=== PATIENT | female | born 1950 | race Caucasian/White ===

== ENCOUNTER 2021-06-07 19:42 | Inpatient (IN) ==
[2021-06-07] MEDS ORDERED: MoRPHine SULFATE 4 MG/ML 1 ML CARP\\VIAL IV STA ×2 (20:10→21:45)
[2021-06-07] MEDS ORDERED: ONDANSETRON INJ 2 MG/ML 2 ML VIAL IV STA (20:10)
[2021-06-07] MEDS ORDERED: SODIUM CHLORIDE 0.9% 1000ML 1,000 ML IV ONE (20:13)
--- NOTE | 2021-06-07 20:13 | Emergency Department Note ---
Impression & Plan Fracture of head of humerus, Dislocation, shoulder, anterior, Closed hip fracture Admission ED Provider Note HPI: The patient is a 71-year-old female with stated history of osteoporosis, patient presented to the emergency department with a chief complaint of right shoulder pain after mechanical fall today. Patient states that she was walking when she tripped over a suitcase that was on the ground. She states she fell directly on her right shoulder and right upper arm area. She states that she had acute pain after the fall. Patient denies any pain in her hips on arrival. She is anxious appearing and in mild distress secondary to pain on arrival, she does have full range of motion of her right hand and a palpable radial pulse. She is otherwise alert, denies any head injury, denies any chest pain or shortness of breath. ROS: - MSK: Right upper extremity pain/right shoulder pain *10 point review systems was conducted and is otherwise negative unless stated above *Outpatient medications and allergy history reviewed PE: General: Alert, NAD HEENT: Normocephalic, atraumatic, trachea midline Eyes: Extraocular eye movement is intact, no scleral erythema Pulmonary: Clear to auscultation bilaterally, no wheezing Cardio: Regular rate and rhythm GI: Abdomen is soft, nontender : No suprapubic tenderness MSK: Limited range of motion of the right shoulder secondary to pain, there is an obvious deformity/consistent with anterior dislocation of the right shoulder on my exam, patient does have motor and sensory function intact distally in the right hand, range of motion is limited at the right hip and there is some pain with palpation at the right hip Skin: No evidence of rash Neuro: Alert, no focal deficits Psychiatric: Cooperative ED sedation note: Consent was obtained, documented, patient signed consent for procedure and deep sedation. Patient was placed on library monitor, supplemental oxygen with OxiMax, oxygen saturations noted to be 100% prior to the procedure. Patient was placed on end- tidal capnography. Following a time out confirming the patient's name, age, and procedure to be performed, 70mg Of propofol was administered via bolus with subsequent flush at 2250. Adequate anesthesia was achieved. Procedure was performed (Please see separately documented note by Dr. Rodriguez who performed the dislocation/reduction of the right shoulder). Patient became more alert and verbally responsive at 2254. She is conversational and otherwise appears well following the procedure at this time. Medical Decision Making: Patient presented with pain in her right shoulder, x-ray imaging confirms a humeral head fracture with anterior dislocation of the shoulder. Patient did attempt to ambulate while in the ED and later did state that she had some pain in her right hip, I did therefore order x-ray imaging of right hip that does show evidence of a comminuted fracture of the proximal right femur. IV was established, patient was given IV morphine for pain, I did discuss case with on-call orthopedics, Dr. Boland, recommended reduction of the dislocated shoulder that does appear to have a humeral head fracture, he is in agreement to evaluate the patient tomorrow for possible operative intervention but is requesting that an MRI of the right hip be ordered for further assessment of the area of concern in the right hip for fracture to be done tomorrow morning. I did have a thorough discussion with the patient and her at the bedside about the above findings, patient is in agreement for admission, she is in agreement for reduction to be performed here in the ED. Reduction of the right dislocated shoulder was performed here in the ED following sedation with propofol, please see separately documented notes regarding sedation in addition to separately documented procedure note by Dr. Rodriguez who did assist me with this procedure as I administered the anesthesia. Patient did tolerate the procedure well, follow-up x-ray imaging confirms appropriate placement / anatomic alignment of the previously dislocated right shoulder. On my reassessment following the procedure the patient is talkative and saturating well. Case was discussed with the admitting hospitalist service and the patient will be admitted to the hospitalist service with orthopedic consultation for definitive care. Patient was admitted in stable condition. Diagnosis: 1. Right-sided humeral head fracture 2. Right-sided Anterior shoulder dislocation 3. Comminuted fracture of the proximal right femur/Hip 4. Osteoporosis Disposition: Admission Royal Brothers DO Emergency Medicine Past Med/Surg History Social History Smoking Status: Never smoker Hx Substance Use: No Preferred Language: Slovak Feels Safe at Home: Yes Allergies Allergies Allergy/AdvReac Type Severity Reaction Status Date / Time Penicillins Allergy Intermediate Rash Verified 06/07/21 20:32 Home Meds Home Medications Medication Instructions Recorded Confirmed evolocumab 140 mg/mL subcutaneous 140 mg SUBCUT .Q2WK 06/07/21 06/07/21 pen injector (Cassi Rodriguez) nifedipine 30 mg tablet,extended 30 mg PO DAILY 06/07/21 06/07/21 release raloxifene 60 mg tablet 60 mg PO DAILY 06/07/21 06/07/21 telmisartan 80 mg tablet 80 mg PO DAILY 06/07/21 06/07/21 Results & Data (ED) Vital Signs Vital Signs - 24 hr 06/07/21 19:53 06/07/21 19:54 06/07/21 20:41 Temperature 36.8 C 36.8 C Temperature Source Oral Oral Pulse Rate 74 73 Pulse Rate [Left Finger] 73 Pulse Rate from SpO2 Sensor 73 Pulse Rhythm Regular Pulse Rhythm [Left Finger] Pulse Strength [Left Finger] Respiratory Rate 18 19 20 Respiratory Effort / Characteristics Non-Labored Respiratory Depth Normal Respiratory Pattern Regular Blood Pressure 140/79 Blood Pressure [Left Arm] 140/79 Blood Pressure Mean 99 Blood Pressure Mean [Left Arm] 99 Blood Pressure Position Semi-fowlers Blood Pressure Position [Left Arm] Pulse Oximetry 98 96 94 Oxygen Delivery Method Room Air Room Air Room Air Sepsis Recent Fever Within 48 Hours No Sepsis New/Unexplained Change in Mental Status No Sepsis Action Taken by Nursing No Action Required End-Tidal CO2 Oxygen Flow Rate - Titration Pulse Oximetry Post Tiitration 06/07/21 20:50 06/07/21 21:00 06/07/21 21:10 Temperature Temperature Source Pulse Rate 107 H 123 H Pulse Rate [Left Finger] Pulse Rate from SpO2 Sensor 102 H 123 H 103 H Pulse Rhythm Pulse Rhythm [Left Finger] Pulse Strength [Left Finger] Respiratory Rate 22 20 20 Respiratory Effort / Characteristics Respiratory Depth Respiratory Pattern Blood Pressure Blood Pressure [Left Arm] Blood Pressure Mean Blood Pressure Mean [Left Arm] Blood Pressure Position Blood Pressure Position [Left Arm] Pulse Oximetry 93 95 94 Oxygen Delivery Method Room Air Room Air Room Air Sepsis Recent Fever Within 48 Hours Sepsis New/Unexplained Change in Mental Status Sepsis Action Taken by Nursing End-Tidal CO2 Oxygen Flow Rate - Titration Pulse Oximetry Post Tiitration 06/07/21 21:20 06/07/21 21:41 06/07/21 21:50 Temperature Temperature Source Pulse Rate 84 Pulse Rate [Left Finger] Pulse Rate from SpO2 Sensor 93 H 84 Pulse Rhythm Pulse Rhythm [Left Finger] Pulse Strength [Left Finger] Respiratory Rate 20 20 13 Respiratory Effort / Characteristics Respiratory Depth Respiratory Pattern Blood Pressure Blood Pressure [Left Arm] Blood Pressure Mean Blood Pressure Mean [Left Arm] Blood Pressure Position Blood Pressure Position [Left Arm] Pulse Oximetry 95 95 94 Oxygen Delivery Method Room Air Room Air Sepsis Recent Fever Within 48 Hours Sepsis New/Unexplained Change in Mental Status Sepsis Action Taken by Nursing End-Tidal CO2 Oxygen Flow Rate - Titration Pulse Oximetry Post Tiitration 06/07/21 22:00 06/07/21 22:10 06/07/21 22:36 Temperature Temperature Source Pulse Rate 89 116 H Pulse Rate [Left Finger] 109 H Pulse Rate from SpO2 Sensor 89 114 H Pulse Rhythm Pulse Rhythm [Left Finger] Regular Pulse Strength [Left Finger] Normal Respiratory Rate 23 21 18 Respiratory Effort / Characteristics Non-Labored Respiratory Depth Normal Respiratory Pattern Regular Blood Pressure Blood Pressure [Left Arm] 160/84 H Blood Pressure Mean Blood Pressure Mean [Left Arm] 109 Blood Pressure Position Blood Pressure Position [Left Arm] Lying Pulse Oximetry 94 95 95 Oxygen Delivery Method Room Air Sepsis Recent Fever Within 48 Hours Sepsis New/Unexplained Change in Mental Status Sepsis Action Taken by Nursing End-Tidal CO2 Oxygen Flow Rate - Titration Pulse Oximetry Post Tiitration 06/07/21 22:45 06/07/21 22:50 06/07/21 22:55 Temperature Temperature Source Pulse Rate 114 H 122 H 100 H Pulse Rate [Left Finger] Pulse Rate from SpO2 Sensor Pulse Rhythm Pulse Rhythm [Left Finger] Pulse Strength [Left Finger] Respiratory Rate 22 19 30 H Respiratory Effort / Characteristics Respiratory Depth Respiratory Pattern Blood Pressure 161/95 H 135/76 146/82 H Blood Pressure [Left Arm] Blood Pressure Mean 117 95 103 Blood Pressure Mean [Left Arm] Blood Pressure Position Blood Pressure Position [Left Arm] Pulse Oximetry 93 99 97 Oxygen Delivery Method Sepsis Recent Fever Within 48 Hours Sepsis New/Unexplained Change in Mental Status Sepsis Action Taken by Nursing End-Tidal CO2 33 34 23 Oxygen Flow Rate - Titration Pulse Oximetry Post Tiitration 06/07/21 23:00 06/07/21 23:05 06/07/21 23:10 Temperature Temperature Source Pulse Rate 90 107 H 97 H Pulse Rate [Left Finger] Pulse Rate from SpO2 Sensor Pulse Rhythm Pulse Rhythm [Left Finger] Pulse Strength [Left Finger] Respiratory Rate 18 18 23 Respiratory Effort / Characteristics Respiratory Depth Respiratory Pattern Blood Pressure 150/91 H 149/94 H 156/90 H Blood Pressure [Left Arm] Blood Pressure Mean 110 112 112 Blood Pressure Mean [Left Arm] Blood Pressure Position Blood Pressure Position [Left Arm] Pulse Oximetry 98 96 97 Oxygen Delivery Method Sepsis Recent Fever Within 48 Hours Sepsis New/Unexplained Change in Mental Status Sepsis Action Taken by Nursing End-Tidal CO2 39 35 32 Oxygen Flow Rate - Titration Pulse Oximetry Post Tiitration 06/07/21 23:15 06/07/21 23:20 06/07/21 23:25 Temperature Temperature Source Pulse Rate 105 H 106 H 96 H Pulse Rate [Left Finger] Pulse Rate from SpO2 Sensor Pulse Rhythm Pulse Rhythm [Left Finger] Pulse Strength [Left Finger] Respiratory Rate 20 23 16 Respiratory Effort / Characteristics Respiratory Depth Respiratory Pattern Blood Pressure 158/94 H 158/88 H 160/90 H Blood Pressure [Left Arm] Blood Pressure Mean 115 111 113 Blood Pressure Mean [Left Arm] Blood Pressure Position Blood Pressure Position [Left Arm] Pulse Oximetry 92 93 92 Oxygen Delivery Method Sepsis Recent Fever Within 48 Hours Sepsis New/Unexplained Change in Mental Status Sepsis Action Taken by Nursing End-Tidal CO2 36 34 34 Oxygen Flow Rate - Titration Pulse Oximetry Post Tiitration 06/07/21 23:30 06/07/21 23:45 06/08/21 00:00 Temperature Temperature Source Pulse Rate 98 H 106 H Pulse Rate [Left Finger] 83 Pulse Rate from SpO2 Sensor Pulse Rhythm Pulse Rhythm [Left Finger] Regular Pulse Strength [Left Finger] Normal Respiratory Rate 21 27 H 22 Respiratory Effort / Characteristics Non-Labored Respiratory Depth Normal Respiratory Pattern Regular Blood Pressure 161/102 H 160/86 H Blood Pressure [Left Arm] 161/79 H Blood Pressure Mean 121 110 Blood Pressure Mean [Left Arm] 106 Blood Pressure Position Blood Pressure Position [Left Arm] Lying Pulse Oximetry 94 93 94 Oxygen Delivery Method Room Air Sepsis Recent Fever Within 48 Hours Sepsis New/Unexplained Change in Mental Status Sepsis Action Taken by Nursing End-Tidal CO2 35 33 Oxygen Flow Rate - Titration Pulse Oximetry Post Tiitration 06/08/21 01:46 Temperature Temperature Source Pulse Rate Pulse Rate [Left Finger] Pulse Rate from SpO2 Sensor Pulse Rhythm Pulse Rhythm [Left Finger] Pulse Strength [Left Finger] Respiratory Rate Respiratory Effort / Characteristics Respiratory Depth Respiratory Pattern Blood Pressure Blood Pressure [Left Arm] Blood Pressure Mean Blood Pressure Mean [Left Arm] Blood Pressure Position Blood Pressure Position [Left Arm] Pulse Oximetry 83 L Oxygen Delivery Method Room Air Sepsis Recent Fever Within 48 Hours Sepsis New/Unexplained Change in Mental Status Sepsis Action Taken by Nursing End-Tidal CO2 Oxygen Flow Rate - Titration 2 Pulse Oximetry Post Tiitration 97 Laboratory Data Result diagrams: 06/07/21 22:00 06/07/21 22:00 Lab Results 06/07/21 06/07/21 06/07/21 Range/Units 22:00 22:00 22:00 WBC 18.86 H (4.8-10.8) K/uL RBC 4.42 (4.2-5.4) M/uL Hgb 14.0 (12.0-16.0) g/dL Hct 40.8 (37-47) % MCV 92.3 (80-100) fL MCH 31.7 (25-34) pg MCHC 34.3 (32-36) g/dL RDW Std Deviation 45.4 (36.4-46.3) fL RDW Coeff of Swetha 13.5 (11.5-14.5) % Plt Count 295 (130-400) K/uL MPV 9.9 (7.4-10.4) fL Immature Gran % (Auto) 0.4 % Neut % (Auto) 88.3 % Lymph % (Auto) 5.2 % Louisa % (Auto) 5.8 % Eos % (Auto) 0.1 % Baso % (Auto) 0.2 % Neut # (Auto) 16.68 H (1.4-6.5) K/uL Lymph # (Auto) 0.98 L (1.2-3.4) K/uL Louisa # (Auto) 1.09 H (0.11-0.59) K/uL Eos # (Auto) 0.01 (0-0.5) K/uL Baso # (Auto) 0.03 (0-0.2) K/uL Immature Gran # (Auto) 0.07 H (0.00-0.02) K/uL PT 9.9 (9.0-12.0) Seconds INR 1.0 (0.9-1.1) Sodium 142 (136-145) mmol/L Potassium 3.3 L (3.5-5.1) mmol/L Chloride 110 H (98-107) mmol/L Carbon Dioxide 25 (21-32) mmol/L Anion Gap 7.0 (3-11) BUN 18 (7-18) mg/dl Creatinine 0.78 (0.6-1.2) mg/dl Est Cr Clr Drug Dosing 59.1 ml/min Est GFR ( Amer) 88.0 ml/min Est GFR (Non-Af Amer) 76.0 ml/min BUN/Creatinine Ratio 23.6 H (10-20) Glucose 169 H (70-99) mg/dl Calcium 8.2 L (8.5-10.1) mg/dl Total Bilirubin 0.2 (0.2-1) mg/dl AST 23 (15-37) U/L ALT 33 (12-78) Alkaline Phosphatase 70 (45-117) U/L Total Protein 7.3 (6.4-8.2) gm/dl Albumin 3.7 (3.4-5.0) gm/dl Globulin 3.6 (2.5-4.0) gm/dl Albumin/Globulin Ratio 1.0 (0.9-2) Specimen Hemolysis SARS-CoV-2, RNA, NAAT (NEGATIVE) 06/08/21 Range/Units 01:05 WBC (4.8-10.8) K/uL RBC (4.2-5.4) M/uL Hgb (12.0-16.0) g/dL Hct (37-47) % MCV (80-100) fL MCH (25-34) pg MCHC (32-36) g/dL RDW Std Deviation (36.4-46.3) fL RDW Coeff of Swetha (11.5-14.5) % Plt Count (130-400) K/uL MPV (7.4-10.4) fL Immature Gran % (Auto) % Neut % (Auto) % Lymph % (Auto) % Louisa % (Auto) % Eos % (Auto) % Baso % (Auto) % Neut # (Auto) (1.4-6.5) K/uL Lymph # (Auto) (1.2-3.4) K/uL Louisa # (Auto) (0.11-0.59) K/uL Eos # (Auto) (0-0.5) K/uL Baso # (Auto) (0-0.2) K/uL Immature Gran # (Auto) (0.00-0.02) K/uL PT (9.0-12.0) Seconds INR (0.9-1.1) Sodium (136-145) mmol/L Potassium (3.5-5.1) mmol/L Chloride (98-107) mmol/L Carbon Dioxide (21-32) mmol/L Anion Gap (3-11) BUN (7-18) mg/dl Creatinine (0.6-1.2) mg/dl Est Cr Clr Drug Dosing ml/min Est GFR ( Amer) ml/min Est GFR (Non-Af Amer) ml/min BUN/Creatinine Ratio (10-20) Glucose (70-99) mg/dl Calcium (8.5-10.1) mg/dl Total Bilirubin (0.2-1) mg/dl AST (15-37) U/L ALT (12-78) Alkaline Phosphatase (45-117) U/L Total Protein (6.4-8.2) gm/dl Albumin (3.4-5.0) gm/dl Globulin (2.5-4.0) gm/dl Albumin/Globulin Ratio (0.9-2) Specimen Hemolysis SARS-CoV-2, RNA, NAAT NEGATIVE (NEGATIVE) Administered Medications Lactated Ringer's (Lr) 1,000 mls @ 60 mls/hr IV .[id number] Stop: 07/08/21 01:44 Last Admin: 06/08/21 01:52 Dose: 60 mls/hr Documented by: [id number] Discontinued Medications Sodium Chloride (Nss 1000ml) 1,000 mls @ 999 mls/hr IV .[id number] ONE Stop: 06/07/21 21:13 Last Infusion: 06/07/21 21:55 Dose: 0 mls/hr Documented by: [id number] Admin: 06/07/21 20:41 Dose: 999 mls/hr Documented by: [id number] Lidocaine HCl (Lidocaine 1% Local 20 Ml Vial) 10 ml INJ NOW ONE Stop: 06/07/21 21:37 Last Admin: 06/07/21 21:56 Dose: 10 ml Documented by: [id number] Morphine Sulfate (Morphine Sulfate 4 Mg/Ml 1 Ml Carp\Vial) 4 mg IV NOW STA Stop: 06/07/21 20:11 Last Admin: 06/07/21 20:42 Dose: 4 mg Documented by: [id number] Morphine Sulfate (Morphine Sulfate 4 Mg/Ml 1 Ml Carp\Vial) 4 mg IV NOW STA Stop: 06/07/21 21:46 Last Admin: 06/07/21 22:10 Dose: 4 mg Documented by: [id number] Ondansetron HCl (Ondansetron Inj 2 Mg/Ml 2 Ml Vial) 4 mg IV NOW STA Stop: 06/07/21 20:11 Last Admin: 06/07/21 20:41 Dose: 4 mg Documented by: [id number] Propofol (Propofol Iv Emulsion 10 Mg/Ml 20 Ml Vial) 100 mg IV NOW STA Stop: 06/07/21 22:14 Last Admin: 06/07/21 22:50 Dose: 70 mg Documented by: [id number] Cosigned by: [id number] Imaging Data Radiologist's Impression: Humerus X-Ray 06/07/21 20:10 XR humerus RT 2V CLINICAL HISTORY: fall. . Right shoulder pain COMPARISON STUDY: Shoulder radiographs from the same date TECHNIQUE: AP and lateral right humerus views FINDINGS: Bones: As seen on shoulder radiographs, there is an anterior shoulder dislocation along with vertically oriented fracture through the humeral head. The remainder of the humeral shaft is intact. There is no lytic or blastic lesion. Joints: The elbow joint space is maintained. Soft tissues: There is no focal soft tissue abnormality. There is no radiopaque foreign body. IMPRESSION: Anterior shoulder dislocation and vertically oriented fracture through the humeral head are again seen. The remainder of the humeral shaft is intact. ACT 112: Negative or not required by law. Electronically signed by: Frank Manzanares M.D. 06/07/2021 9:37 PM Shoulder X-Ray 06/07/21 20:10 XR shoulder RT min 2V routine CLINICAL HISTORY: Fall, R shoulder pain. COMPARISON STUDY: No previous studies for comparison. TECHNIQUE: 3 right shoulder views FINDINGS: Bones: There is an anterior, subcoracoid dislocation of the humeral head in relation to the glenoid. Additionally, there is a vertically oriented, displaced fracture involving the humeral head. There is no lytic or blastic lesion. Joints: Mild degenerative changes are seen at the acromial clavicular joint. Soft tissues: There is no focal soft tissue abnormality. There is no radiopaque foreign body. IMPRESSION: 1. Anterior, subcoracoid dislocation of the humeral head in relation to the glenoid. 2. Vertically oriented, displaced fracture through the humeral head. ACT 112: Negative or not required by law. Electronically signed by: Frank Manzanares M.D. 06/07/2021 9:35 PM Elbow X-Ray 06/07/21 20:12 XR elbow RT 2V CLINICAL HISTORY: fall. . Right elbow pain COMPARISON STUDY: No previous studies for comparison. TECHNIQUE: 4 right elbow views FINDINGS: Limited study was performed due to the shoulder dislocation present. Bones: There is no evidence for an acute fracture or dislocation. There is no lytic or blastic lesion. Joints: The joint spaces are maintained. The bones are in anatomic alignment. Soft tissues: There is no focal soft tissue abnormality. There is no radiopaque foreign body. IMPRESSION: No acute osseous pathology. ACT 112: Negative or not required by law. Electronically signed by: Frank Manzanares M.D. 06/07/2021 9:38 PM Hip X-Ray 06/07/21 20:39 XR hip RT min 2V CLINICAL HISTORY: Status post fall with right hip pain. COMPARISON STUDY: No previous studies for comparison. TECHNIQUE: 2 right hip views FINDINGS: Bones: There is evidence for a laterally impacted, subcapital fracture of the right femoral neck. The medial cortex is intact. There is no lytic or blastic lesion. Joints: The joint spaces are maintained. The bones are in anatomic alignment. Soft tissues: There is a large calcified uterine fibroid. There is no radiopaque foreign body. IMPRESSION: Evidence for a laterally impacted, subcapital fracture of the right femoral neck. ACT 112: Negative or not required by law. Electronically signed by: Frank Manzanares M.D. 06/07/2021 9:33 PM Shoulder X-Ray 06/07/21 22:59 XR shoulder RT min 2V routine CLINICAL HISTORY: s/p reduction. COMPARISON STUDY: 06/07/2021 TECHNIQUE: 2 right shoulder views FINDINGS: Bones and joints: Compared to previous examination, there has been interval reduction of previously identified interstitial or dislocation. Humeral head is now in anatomic position within the glenoid. Previously identified vertically oriented fracture through the tuberosities of the humeral head are now in near anatomic alignment. No additional fractures are identified. There is no lytic or blastic lesion. Soft tissues: There is no focal soft tissue abnormality. There is no radiopaque foreign body. IMPRESSION: Status post reduction of previously identified interstitial dislocation. Vertically oriented fracture through the bases of the tuberosities of the humeral head is now in near-anatomic alignment. ACT 112: Negative or not required by law. Electronically signed by: Frank Manzanares M.D. 06/07/2021 11:16 PM Discharge Plan Visit Data Chief Complaint: Shoulder Dislocation Stated Complaint: FALL/SHOULDER DISLOCATION ED Provider: Royal Brothers Discharge Problem: Fracture of head of humerus, Dislocation, shoulder, anterior, Closed hip fracture Patient Disposition: Admitted As Inpatient Forms Stand Alone Forms: [facility] Prescriptions Prescriptions: No Action Repatha SureClick 140 mg/mL Pen Injector 140 mg SUBCUT .Q2WK RF: 0 nifedipine 30 mg tablet extended release 30 mg PO DAILY RF: 0 telmisartan 80 mg tablet 80 mg PO DAILY RF: 0 raloxifene 60 mg tablet 60 mg PO DAILY RF: 0 Referrals Referrals: PCP,NO [Primary Care Provider] - Sedation Data Sedation Times Sedation Start Date: 06/07/21 Sedation Start Time: 22:50 Sedation End Date: 06/07/21 Sedation End Time: 22:54 Total Sedation Time: 4 Procedure Times Procedure Start Time:: 22:51 Procedure End Time: 22:52
--- NOTE | 2021-06-07 21:34 | XRay Report ---
XR hip RT min 2V CLINICAL HISTORY: Status post fall with right hip pain. COMPARISON STUDY: No previous studies for comparison. TECHNIQUE: 2 right hip views FINDINGS: Bones: There is evidence for a laterally impacted, subcapital fracture of the right femoral neck. The medial cortex is intact. There is no lytic or blastic lesion. Joints: The joint spaces are maintained. The bones are in anatomic alignment. Soft tissues: There is a large calcified uterine fibroid. There is no radiopaque foreign body. IMPRESSION: Evidence for a laterally impacted, subcapital fracture of the right femoral neck. ACT 112: Negative or not required by law. Electronically signed by: Frank Manzanares M.D. 06/07/2021 9:33 PM
[2021-06-07] MEDS ORDERED: LIDOCAINE 1% LOCAL 20 ML VIAL INJ ONE (21:36)
--- NOTE | 2021-06-07 21:36 | XRay Report ---
XR shoulder RT min 2V routine CLINICAL HISTORY: Fall, R shoulder pain. COMPARISON STUDY: No previous studies for comparison. TECHNIQUE: 3 right shoulder views FINDINGS: Bones: There is an anterior, subcoracoid dislocation of the humeral head in relation to the glenoid. Additionally, there is a vertically oriented, displaced fracture involving the humeral head. There is no lytic or blastic lesion. Joints: Mild degenerative changes are seen at the acromial clavicular joint. Soft tissues: There is no focal soft tissue abnormality. There is no radiopaque foreign body. IMPRESSION: 1. Anterior, subcoracoid dislocation of the humeral head in relation to the glenoid. 2. Vertically oriented, displaced fracture through the humeral head. ACT 112: Negative or not required by law. Electronically signed by: Frank Manzanares M.D. 06/07/2021 9:35 PM
--- NOTE | 2021-06-07 21:38 | XRay Report ---
XR humerus RT 2V CLINICAL HISTORY: fall. . Right shoulder pain COMPARISON STUDY: Shoulder radiographs from the same date TECHNIQUE: AP and lateral right humerus views FINDINGS: Bones: As seen on shoulder radiographs, there is an anterior shoulder dislocation along with vertical ly oriented fracture through the humeral head. The remainder of the humeral shaft is intact. There is no lytic or blastic lesion. Joints: The elbow joint space is maintained. Soft tissues: There is no focal soft tissue abnormality. There is no radiopaque foreign body. IMPRESSION: Anterior shoulder dislocation and vertically oriented fracture through the humeral head a re again seen. The remainder of the humeral shaft is intact. ACT 112: Negative or not required by law. Electronically signed by: Frank Manzanares M.D. 06/07/2021 9:37 PM
--- NOTE | 2021-06-07 21:39 | XRay Report ---
XR elbow RT 2V CLINICAL HISTORY: fall. . Right elbow pain COMPARISON STUDY: No previous studies for comparison. TECHNIQUE: 4 right elbow views FINDINGS: Limited study was performed due to the shoulder dislocation present. Bones: There is no evidence for an acute fracture or dislocation. There is no lytic or blastic lesion . Joints: The joint spaces are maintained. The bones are in anatomic alignment. Soft tissues: There is no focal soft tissue abnormality. There is no radiopaque foreign body. IMPRESSION: No acute osseous pathology. ACT 112: Negative or not required by law. Electronically signed by: Frank Manzanares M.D. 06/07/2021 9:38 PM
[2021-06-07 22:07] LABS: Hematocrit (blood only) 40.8 % (37-47); Mean Corpuscular Hemoglobin 31.7 pg (25-34); Mean Corpuscular Hgb Conc 34.3 g/dL (32-36); Mean Corpuscular Volume 92.3 fL (80-100); Mean Platelet Volume 9.9 fL (7.4-10.4); Platelet Count 295 K/uL (130-400); RDW Coefficient of Variation 13.5 % (11.5-14.5); RDW Standard Deviation 45.4 fL (36.4-46.3); Red Blood Count 4.42 M/uL (4.2-5.4); White Blood Count 18.86 K/uL (4.8-10.8)
[2021-06-07] MEDS ORDERED: PROPOFOL IV EMULSION 10 MG/ML 20 ML VIAL IV STA (22:13)
--- NOTE | 2021-06-07 22:15 | Post Anesthesia Assessment ---
Date of Service June 07, 2021 Post Sedation Assessment Vital Signs Temp Pulse Pulse Resp BP BP Pulse Ox 06/08/21 01:46 83 L 06/08/21 00:00 83 22 161/79 H 94 06/07/21 23:45 106 H 27 H 160/86 H 93 06/07/21 23:30 98 H 21 161/102 H 94 06/07/21 23:25 96 H 16 160/90 H 92 06/07/21 23:20 106 H 23 158/88 H 93 06/07/21 23:15 105 H 20 158/94 H 92 06/07/21 23:10 97 H 23 156/90 H 97 06/07/21 23:05 107 H 18 149/94 H 96 06/07/21 23:00 90 18 150/91 H 98 06/07/21 22:55 100 H 30 H 146/82 H 97 06/07/21 22:50 122 H 19 135/76 99 06/07/21 22:45 114 H 22 161/95 H 93 06/07/21 22:36 109 H 18 160/84 H 95 06/07/21 22:10 116 H 21 95 06/07/21 22:00 89 23 94 06/07/21 21:50 84 13 94 06/07/21 21:41 20 95 06/07/21 21:20 20 95 06/07/21 21:10 20 94 06/07/21 21:00 123 H 20 95 06/07/21 20:50 107 H 22 93 06/07/21 20:41 73 20 94 06/07/21 19:54 36.8 C 74 19 140/79 96 06/07/21 19:53 36.8 C 73 18 140/79 98 Recovery Score Activity: Moves 4 extremities Respiration: Deep Breath/Cough Consciousness: Fully Awake Oxygen Saturation: > 92% On Room Air Discharge Sedation Level of Care: Phase I Post Sedation Plan On clinical assessment, the patient appears to have tolerated the sedation without complications. Patient is recovering as anticipated. Patient will continue to be monitored by nursing and may be discharged when sedation discharge criteria are met per below protocol. Upon Completions of procedure up to 15 minutes continue every 5 minute vital signs and the P.A.R. score; then discharge to a Phase I or Fast Track to Phase II per the following guidelines: * Discharge Patient to appropriate Phase II area if PAR is 8 or greater or return to pre- procedure baseline. The post - procedure orders will be as directed. * If PAR score is less than 8 or not return to pre-procedure baseline then patient will follow Phase I monitoring till PAR is reached for Phase II. The Phase I may be done in procedure room or may call to secure a Phase I area. * If naloxone or flumazenil are used for reversal, hold in Phase I for continued monitoring from when last reversal dose was given for a minimum of 60 minutes or longer pending the nurse and/or physician discretion of patient condition before discharge to Phase II. Please call the Sedation Physician to re-evaluate and complete post-note for discharge to Phase II area. Do NOT discharge from procedure sedation or Phase 1 until post- sedation evaluation note is complete by procedure /sedation MD Sedation Discharge Instructions to be given to the patient at discharge to home. Addendum June 08, 2021 02:14 Patient appears well after her procedure, she is awake, she does not exhibit any labored breathing, she is talkative, appears well-perfused, she tolerated the procedure well.
--- NOTE | 2021-06-07 22:16 | Pre Anesthesia Assessment ---
Date of Service June 07, 2021 Pre Sedation Assessment Vital Signs Temp Pulse Pulse Resp BP BP Pulse Ox 06/08/21 01:46 83 L 06/08/21 00:00 83 22 161/79 H 94 06/07/21 23:45 106 H 27 H 160/86 H 93 06/07/21 23:30 98 H 21 161/102 H 94 06/07/21 23:25 96 H 16 160/90 H 92 06/07/21 23:20 106 H 23 158/88 H 93 06/07/21 23:15 105 H 20 158/94 H 92 06/07/21 23:10 97 H 23 156/90 H 97 06/07/21 23:05 107 H 18 149/94 H 96 06/07/21 23:00 90 18 150/91 H 98 06/07/21 22:55 100 H 30 H 146/82 H 97 06/07/21 22:50 122 H 19 135/76 99 06/07/21 22:45 114 H 22 161/95 H 93 06/07/21 22:36 109 H 18 160/84 H 95 06/07/21 22:10 116 H 21 95 06/07/21 22:00 89 23 94 06/07/21 21:50 84 13 94 06/07/21 21:41 20 95 06/07/21 21:20 20 95 06/07/21 21:10 20 94 06/07/21 21:00 123 H 20 95 06/07/21 20:50 107 H 22 93 06/07/21 20:41 73 20 94 06/07/21 19:54 36.8 C 74 19 140/79 96 06/07/21 19:53 36.8 C 73 18 140/79 98 Cardiovascular RRR, no murmur, no edema + regular rate and + regular rhythm + S1 normal and + S2 normal + capillary refill normal Pre-Sedation Airway Assessment Smoking Status: Never smoker Hx Sleep Apnea: No Hx Difficult Intubation: No Short, Thick Neck: No Thyromental Distance: > or= 3.5 Finger Breadths Oral Cavity: + WNL Mallampati Class: II CLASS 2 Class 2 NPO Status Date of Last Intake of Solid Food: 06/07/21 Time of Last Intake of Solid Foods: 14:00 Procedure Planning Contraindications for Sedation: none Current Medications Reviewed: Yes Notes The planned sedation has been discussed with the patient. Informed Consent was obtained. I have identified the patient, determined the appropriateness of sedation and have assessed the patient immediately prior to the procedure. All medicine(s) and interventions are by my order.
[2021-06-07 22:19] LABS: Prothrombin Time 9.9 Seconds (9.0-12.0)
[2021-06-07 22:26] LABS: Albumin Level 3.7 gm/dl (3.4-5.0); BUN Creatinine Ratio 23.6 (10-20); Calcium 8.2 mg/dl (8.5-10.1); Creatinine Clr Calc Pharmacy 59.1 ml/min; Potassium 3.3 mmol/L (3.5-5.1)
[2021-06-07 22:30] LABS: Bilirubin,Total 0.2 mg/dl (0.2-1); Globulin 3.6 gm/dl (2.5-4.0); Total Protein 7.3 gm/dl (6.4-8.2)
[2021-06-07 22:42] LABS: Basophils # (auto) 0.03 K/uL (0-0.2); Basophils % (auto) 0.2 %; Eosinophils # (auto) 0.01 K/uL (0-0.5); Eosinophils % (auto) 0.1 %; Immature Granulocytes # (auto) 0.07 K/uL (0.00-0.02); Immature Granulocytes % (auto) 0.4 %; Lymphocytes # (auto) 0.98 K/uL (1.2-3.4); Lymphocytes % (auto) 5.2 %; Monocytes # (auto) 1.09 K/uL (0.11-0.59); Monocytes % (auto) 5.8 %; Neutrophils # (auto) 16.68 K/uL (1.4-6.5); Neutrophils % (auto) 88.3 %
--- NOTE | 2021-06-07 23:17 | XRay Report ---
XR shoulder RT min 2V routine CLINICAL HISTORY: s/p reduction. COMPARISON STUDY: 06/07/2021 TECHNIQUE: 2 right shoulder views FINDINGS: Bones and joints: Compared to previous examination, there has been interval reduction of previously i dentified interstitial or dislocation. Humeral head is now in anatomic position within the glenoid. P reviously identified vertically oriented fracture through the tuberosities of the humeral head are no w in near anatomic alignment. No additional fractures are identified. There is no lytic or blastic le jessica. Soft tissues: There is no focal soft tissue abnormality. There is no radiopaque foreign body. IMPRESSION: Status post reduction of previously identified interstitial dislocation. Vertically orien justin fracture through the bases of the tuberosities of the humeral head is now in near-anatomic alignm ent. ACT 112: Negative or not required by law. Electronically signed by: Frank Manzanares M.D. 06/07/2021 11:16 PM
--- NOTE | 2021-06-07 23:47 | Emergency Department Note ---
ED Visit Note Anterior Shoulder Dislocation Reduction performed by Dr. Rodriguez Indication: Right anterior shoulder dislocation Verbal consent obtained. Risks and benefits were explained with the usual customary discussion. A time out was taken. Neurovascular examination before the procedure revealed to be normal. The right shoulder glenohumeral dislocation was reduced by applying gentle downward inline traction on the humerus, with the elbow flexed at 90 degrees, along with external rotation. This resulted in an easy reduction without complication. Neurovascular examination after the procedure revealed to be normal. The patient had significant pain relief and tolerated the procedure well..
--- NOTE | 2021-06-08 01:39 | History & Physical Report ---
Date of Service June 08, 2021 Assessment & Plan (1) Fracture of head of humerus: Plan: Will keep in sling, until assessed by orthopedic surgery (2) Dislocation, shoulder, anterior: Plan: Reduced in ED as noted by follow-up x-ray (3) Closed hip fracture: Plan: NPO Acetaminophen 650 mg p.o. every 6 hours as needed mild pain or fever [place] 5/325, 1 p.o. every 6 hours as needed moderate pain [place] 5/325, 2 p.o. every 6 hours as needed severe pain Dilaudid 0.25 mg IV every 3 hours as needed moderate pain Dilaudid 0.5 mg IV every 3 hours as needed severe pain Zofran 4 mg IV every 6 hours as needed Famotidine 20 mg IV every 12 hours Orthopedic surgery to assess patient in a.m. (4) Hypertension: Plan: Continue nifedipine and telmisartan with hold parameters (5) Osteoporosis: Plan: Continue raloxifene (6) Hyperlipidemia: Plan: On Repatha as outpatient History of Present Illness Chief Complaint: The patient presents to the emergency department after a mechanical fall in which she tripped over a [employer] suitcase on the floor, landing on her right shoulder and hip, and sustaining immediate pain to both. Primary Care Provider: NO PCP The patient is a 71-year-old female with past medical history including hypertension and osteoporosis, who presents with symptoms as noted above. Abnormal imaging studies: Lateral impacted subcapital right femoral neck fracture. Anterior shoulder dislocation, with vertical fracture through humeral head. Subsequent imaging shows reduction of shoulder Allergies Allergy/AdvReac Type Severity Reaction Status Date / Time Penicillins Allergy Intermediate Rash Verified 06/07/21 20:32 Home Medications Medication Instructions Recorded Confirmed Type evolocumab 140 mg/mL subcutaneous 140 mg SUBCUT .Q2WK 06/07/21 06/07/21 History pen injector (Cassi Rodriguez) nifedipine 30 mg tablet,extended 30 mg PO DAILY 06/07/21 06/07/21 History release raloxifene 60 mg tablet 60 mg PO DAILY 06/07/21 06/07/21 History telmisartan 80 mg tablet 80 mg PO DAILY 06/07/21 06/07/21 History Past Med/Surg History Medical History (Updated 06/08/21 @ 03:35 by Dilip Lehman MD) Hyperlipidemia Hypertension Osteoporosis Social History Smoking Status: Never smoker Hx Substance Use: No Preferred Language: Pashto Feels Safe at Home: Yes Review of Systems Review of Systems: The patient denies chest pain, palpitations, shortness of breath, dyspnea on exertion, cough, sore throat, fevers, chills, sweats, weight change, fatigue, nausea, vomiting, diarrhea , constipation, abdominal pain, pelvic pain, blood in urine or stool, dysuria, urinary frequency or urgency, lightheadedness, dizziness, headache, memory loss, loss of consciousness, rash, abnormal bruising or bleeding, focal or generalized weakness, numbness or tingling in left arm or leg, back or neck pain, or night sweats. The review of systems is otherwise negative other than for that already noted above, and at least 10 systems have been reviewed. Physical Exam Physical Exam: The patient is awake, alert and oriented 3, well developed and well nourished, normocephalic and atraumatic, lying in bed and in no acute distress. HEENT--PERRL, EOMI, mucous membranes and oropharynx normal. Neck--supple. No JVD. No bruits. Thyroid normal, trachea midline, no adenopathy. Heart--normal S1 and S2. No murmurs, rubs or gallops. Lungs--clear bilaterally, no respiratory distress, no accessory muscle use. Abdomen--normal bowel sounds and soft. Nontender. Nondistended, no hernias or masses, no organomegaly. Extremities--no cyanosis or clubbing. No edema. Dermatologic--normal skin turgor, normal color, no abnormal lymph nodes, no rash. Neurologic--cranial nerves II through XII grossly intact. Rheumatologic--limited exam due to painful right shoulder and right hip Psychiatric--normal affect. Results & Data Results & Data ([facility]) Vital Signs (Past 12 Hours) Vital Signs Temp Pulse Pulse Resp BP BP Pulse Ox 06/08/21 00:00 83 22 161/79 H 94 06/07/21 23:45 106 H 27 H 160/86 H 93 06/07/21 23:30 98 H 21 161/102 H 94 06/07/21 23:25 96 H 16 160/90 H 92 06/07/21 23:20 106 H 23 158/88 H 93 06/07/21 23:15 105 H 20 158/94 H 92 06/07/21 23:10 97 H 23 156/90 H 97 06/07/21 23:05 107 H 18 149/94 H 96 06/07/21 23:00 90 18 150/91 H 98 06/07/21 22:55 100 H 30 H 146/82 H 97 06/07/21 22:50 122 H 19 135/76 99 06/07/21 22:45 114 H 22 161/95 H 93 06/07/21 22:36 109 H 18 160/84 H 95 06/07/21 22:10 116 H 21 95 06/07/21 22:00 89 23 94 06/07/21 21:50 84 13 94 06/07/21 21:41 20 95 06/07/21 21:20 20 95 06/07/21 21:10 20 94 06/07/21 21:00 123 H 20 95 06/07/21 20:50 107 H 22 93 06/07/21 20:41 73 20 94 06/07/21 19:54 36.8 C 74 19 140/79 96 06/07/21 19:53 36.8 C 73 18 140/79 98 Laboratory Results Laboratory Results WBC 18.86 K/uL (4.8-10.8) H 06/07/21 22:00 RBC 4.42 M/uL (4.2-5.4) 06/07/21 22:00 Hgb 14.0 g/dL (12.0-16.0) 06/07/21 22:00 Hct 40.8 % (37-47) 06/07/21 22:00 MCV 92.3 fL (80-100) 06/07/21 22:00 MCH 31.7 pg (25-34) 06/07/21 22:00 MCHC 34.3 g/dL (32-36) 06/07/21 22:00 RDW Std Deviation 45.4 fL (36.4-46.3) 06/07/21 22:00 RDW Coeff of Swetha 13.5 % (11.5-14.5) 06/07/21 22:00 Plt Count 295 K/uL (130-400) 06/07/21 22:00 MPV 9.9 fL (7.4-10.4) 06/07/21 22:00 Immature Gran % (Auto) 0.4 % 06/07/21 22:00 Neut % (Auto) 88.3 % 06/07/21 22:00 Lymph % (Auto) 5.2 % 06/07/21 22:00 Cotton % (Auto) 5.8 % 06/07/21 22:00 Eos % (Auto) 0.1 % 06/07/21 22:00 Baso % (Auto) 0.2 % 06/07/21 22:00 Neut # (Auto) 16.68 K/uL (1.4-6.5) H 06/07/21 22:00 Lymph # (Auto) 0.98 K/uL (1.2-3.4) L 06/07/21 22:00 Cotton # (Auto) 1.09 K/uL (0.11-0.59) H 06/07/21 22:00 Eos # (Auto) 0.01 K/uL (0-0.5) 06/07/21 22:00 Baso # (Auto) 0.03 K/uL (0-0.2) 06/07/21 22:00 Immature Gran # (Auto) 0.07 K/uL (0.00-0.02) H 06/07/21 22:00 PT 9.9 Seconds (9.0-12.0) 06/07/21 22:00 INR 1.0 (0.9-1.1) 06/07/21 22:00 Sodium 142 mmol/L (136-145) 06/07/21 22:00 Potassium 3.3 mmol/L (3.5-5.1) L 06/07/21 22:00 Chloride 110 mmol/L (98-107) H 06/07/21 22:00 Carbon Dioxide 25 mmol/L (21-32) 06/07/21 22:00 Anion Gap 7.0 (3-11) 06/07/21 22:00 BUN 18 mg/dl (7-18) 06/07/21 22:00 Creatinine 0.78 mg/dl (0.6-1.2) 06/07/21 22:00 Est Cr Clr Drug Dosing 59.1 ml/min 06/07/21 22:00 Est GFR ( Amer) 88.0 ml/min 06/07/21 22:00 Est GFR (Non-Af Amer) 76.0 ml/min 06/07/21 22:00 BUN/Creatinine Ratio 23.6 (10-20) H 06/07/21 22:00 Glucose 169 mg/dl (70-99) H 06/07/21 22:00 Calcium 8.2 mg/dl (8.5-10.1) L 06/07/21 22:00 Total Bilirubin 0.2 mg/dl (0.2-1) 06/07/21 22:00 AST 23 U/L (15-37) 06/07/21 22:00 ALT 33 (12-78) 06/07/21 22:00 Alkaline Phosphatase 70 U/L (45-117) 06/07/21 22:00 Total Protein 7.3 gm/dl (6.4-8.2) 06/07/21 22:00 Albumin 3.7 gm/dl (3.4-5.0) 06/07/21 22:00 Globulin 3.6 gm/dl (2.5-4.0) 06/07/21 22:00 Albumin/Globulin Ratio 1.0 (0.9-2) 06/07/21 22:00 Specimen Hemolysis 06/07/21 22:00 SARS-CoV-2, RNA, NAAT NEGATIVE (NEGATIVE) 06/08/21 01:05 Impressions Humerus X-Ray 06/07/21 20:10 XR humerus RT 2V CLINICAL HISTORY: fall. . Right shoulder pain COMPARISON STUDY: Shoulder radiographs from the same date TECHNIQUE: AP and lateral right humerus views FINDINGS: Bones: As seen on shoulder radiographs, there is an anterior shoulder disl ocation along with vertically oriented fracture through the humeral head. The remainder of the humeral shaft is intact. There is no lytic or blastic lesion. Joints: The elbow joint space is maintained. Soft tissues: There is no focal soft tissue abnormality. There is no radiopaque foreign body. IMPRESSION: Anterior shoulder dislocation and vertically oriented fracture through the humeral head are again seen. The remainder of the humeral shaft is intact. ACT 112: Negative or not required by law. Electronically signed by: Frank Manzanares M.D. 06/07/2021 9:37 PM Elbow X-Ray 06/07/21 20:12 XR elbow RT 2V CLINICAL HISTORY: fall. . Right elbow pain COMPARISON STUDY: No previous studies for comparison. TECHNIQUE: 4 right elbow views FINDINGS: Limited study was performed due to the shoulder dislocation present. Bones: There is no evidence for an acute fracture or dislocation. There is no lytic or blastic lesion. Joints: The joint spaces are maintained. The bones are in anatomic alignment. Soft tissues: There is no focal soft tissue abnormality. There is no radiopaque foreign body. IMPRESSION: No acute osseous pathology. ACT 112: Negative or not required by law. Electronically signed by: Frank Manzanares M.D. 06/07/2021 9:38 PM Hip X-Ray 06/07/21 20:39 XR hip RT min 2V CLINICAL HISTORY: Status post fall with right hip pain. COMPARISON STUDY: No previous studies for comparison. TECHNIQUE: 2 right hip views FINDINGS: Bones: There is evidence for a laterally impacted, subcapital fracture of the right femoral neck. The medial cortex is intact. There is no lytic or blastic lesion. Joints: The joint spaces are maintained. The bones are in anatomic alignment. Soft tissues: There is a large calcified uterine fibroid. There is no radiopaque foreign body. IMPRESSION: Evidence for a laterally impacted, subcapital fracture of the right femoral neck. ACT 112: Negative or not required by law. Electronically signed by: Frank Manzanares M.D. 06/07/2021 9:33 PM Shoulder X-Ray 06/07/21 22:59 XR shoulder RT min 2V routine CLINICAL HISTORY: s/p reduction. COMPARISON STUDY: 06/07/2021 TECHNIQUE: 2 right shoulder views FINDINGS: Bones and joints: Compared to previous examination, there has been interval reduction of previously identified interstitial or dislocation. Humeral head is now in anatomic position within the glenoid. Previously identified vertically oriented fracture through the tuberosities of the humeral head are now in near anatomic alignment. No additional fractures are identified. There is no lytic or blastic lesion. Soft tissues: There is no focal soft tissue abnormality. There is no radiopaque foreign body. IMPRESSION: Status post reduction of previously identified interstitial dislocation. Vertically oriented fracture through the bases of the tuberosities of the humeral head is now in near-anatomic alignment. ACT 112: Negative or not required by law. Electronically signed by: Frank Manzanares M.D. 06/07/2021 11:16 PM Code Status & VTE Plan Code Status Full code VTE Prophylaxis Plan VTE Prophylaxis will be ordered: Yes PG Care Time/CCT Total # of Minutes Spent Total Time Spent with Patient: Total time spent is greater than 50% in coordination of care (as documented) at patient's floor/unit and/or counseling patient: Coding Level of Care Code 72845 Initial Inpt Care Lvl 2 Diagnoses Fracture of head of humerus S42.291A Encounter type: initial encounter Fracture type: closed Laterality: right Dislocation, shoulder, anterior S43.014A Encounter type: initial encounter Laterality: right Closed hip fracture S72.001A Encounter type: initial encounter Laterality: right Hypertension I10 Osteoporosis M81.0 Hyperlipidemia E78.5 (1) Fracture of head of humerus Encounter type: initial encounter Fracture type: closed Laterality: right Qualified Code(s): S42.291A - Other displaced fracture of upper end of right humerus, initial encounter for closed fracture (2) Dislocation, shoulder, anterior Encounter type: initial encounter Laterality: right Qualified Code(s): S43.014A - Anterior dislocation of right humerus, initial encounter (3) Closed hip fracture Encounter type: initial encounter Laterality: right Qualified Code(s): S72.001A - Fracture of unspecified part of neck of right femur, initial encounter for closed fracture
[2021-06-08] MEDS: LACTATED RINGER'S 1,000 ML IV SCH ×2 (01:52→14:45)
[2021-06-08] MEDS ORDERED: HYDROmorphone INJ 0.5 MG/0.5 ML SYR ONE (04:08)
[2021-06-08] MEDS ORDERED: ONDANSETRON INJ 2 MG/ML 2 ML VIAL IV PRN (04:44)
[2021-06-08] MEDS ORDERED: MAGNESIUM HYDROXIDE SUSP 30 ML UDC PO PRN (04:44)
[2021-06-08] MEDS ORDERED: bisacodyL 10 MG SUPP PR PRN (04:44)
[2021-06-08] MEDS ORDERED: HYDROmorphone INJ 0.5 MG/0.5 ML SYR IV PRN ×2 (04:44)
[2021-06-08] MEDS ORDERED: NALOXONE HCL 0.4 MG/1 ML VIAL/CARP IV PRN (04:44)
[2021-06-08] MEDS ORDERED: TRANEXAMIC ACID / 0.7% NACL 1,000 MG/100 ML BAG IV SCH ×2 (06:00→06:30)
--- NOTE | 2021-06-08 07:48 | Hospitalist Progress Note ---
Date of Service June 08, 2021 Assessment & Plan (1) Fracture of head of humerus: Plan: Tisha is a 71-year-old female with a history of osteoporosis who presented to [facility] following a mechanical fall over a misplaced suitcase, subsequently found to have a RIGHT femoral neck fracture, RIGHT anterior shoulder dislocation, and RIGHT humeral head fracture. She is hemodynamically stable. Humeral Head Fracture (RIGHT) -- concerning for osteoporotic-driven process - In setting of mechanical fall and anterior shoulder dislocation - XR revealing of "vertically oriented fracture through humeral head" - CT of Shoulder pending - Orthopedics consulted, appreciate insight, recommendations - Maintain sling for now - PT, OT Right Anterior Shoulder Dislocation - In setting of mechanical fall as previously described - s/p successful reduction in the ER on 06/07 - Await CT-Shoulder - Orthopedics consulted, as above Closed Fracture of R Hip -- concerning for osteoporotic-driven process - In setting of mechanical fall and anterior shoulder dislocation - XR demonstrating: "evidence for a laterally impacted, subcapital fracture of the R femoral neck" - Hemodynamically stable since arrival: VSS, Hgb within goal-ranges - Orthopedics consulted: MRI to assess extent/type of fracture. Plan for OR in the morning. ROGER vs. screw fixation. - Pain control: Tylenol > Wren > Dilaudid - Zofran, famotidine - s/p tranexamic acid upon admission - Maintain NPO at midnight Osteoporosis - In the setting of the above issues, patient has known history of osteoporosis - Continue raloxifene HTN - Continue telmesartan, nifedipine while here given normo-hypertension readings - Low threshold to ween/hold if any concerns of bleeding HLD - Continue Repatha Code: FULL CODE Dispo: MS/Tele Diet: NPO at midnight for procedure tomorrow PPX: SCDs; hold pharmacologics in setting of recent trauma until cleared by orthopedics (2) Dislocation, shoulder, anterior: (3) Closed hip fracture: (4) Hypertension: (5) Osteoporosis: (6) Hyperlipidemia: Admission and Anticipated Discharge Date Admission Date: June 08, 2021 Subjective NAEO. Pain notable in her leg this morning. No numbness/tingling. No CP/palpitations/SOB. Pain medications given IV make her almost a little too drowsy. Review of Systems Review of Systems: as per HPI Physical Exam Physical Exam: General: Tired appearing 71yoF in NAD. Fully A&O. Cardiac: NRRR, S1/S2 present without m/r/g Pulmonary: Good respiratory effort with symmetric expansion of the chest. CTAB w/o crackles or wheezes. Abdominal: Soft, nontender, nondistended Extremities: R shoulder in sling. Peripheral motor streth of RUE in-tact, as is sensation to light touch and biceps reflex 2+. RLE without lateral bruising. Mild TTP over greater trochanter. Distal strength and sensation in-tact. Capillary refill < 3 seconds. Results & Data Results & Data ([facility]) Vital Signs (Past 12 Hours) Vital Signs Temp Pulse Pulse Resp BP BP Pulse Ox 06/08/21 04:54 85 18 151/75 H 95 06/08/21 04:00 89 18 166/92 H 97 06/08/21 02:00 77 18 125/104 H 93 06/08/21 01:46 83 L 06/08/21 00:00 83 22 161/79 H 94 06/07/21 23:45 106 H 27 H 160/86 H 93 06/07/21 23:30 98 H 21 161/102 H 94 06/07/21 23:25 96 H 16 160/90 H 92 06/07/21 23:20 106 H 23 158/88 H 93 06/07/21 23:15 105 H 20 158/94 H 92 06/07/21 23:10 97 H 23 156/90 H 97 06/07/21 23:05 107 H 18 149/94 H 96 06/07/21 23:00 90 18 150/91 H 98 06/07/21 22:55 100 H 30 H 146/82 H 97 06/07/21 22:50 122 H 19 135/76 99 06/07/21 22:45 114 H 22 161/95 H 93 06/07/21 22:36 109 H 18 160/84 H 95 06/07/21 22:10 116 H 21 95 06/07/21 22:00 89 23 94 06/07/21 21:50 84 13 94 06/07/21 21:41 20 95 06/07/21 21:20 20 95 06/07/21 21:10 20 94 06/07/21 21:00 123 H 20 95 06/07/21 20:50 107 H 22 93 06/07/21 20:41 73 20 94 06/07/21 19:54 36.8 C 74 19 140/79 96 06/07/21 19:53 36.8 C 73 18 140/79 98 Pulse Ox 06/08/21 04:54 94 06/08/21 04:00 06/08/21 02:00 06/08/21 01:46 06/08/21 00:00 06/07/21 23:45 06/07/21 23:30 06/07/21 23:25 06/07/21 23:20 06/07/21 23:15 06/07/21 23:10 06/07/21 23:05 06/07/21 23:00 06/07/21 22:55 06/07/21 22:50 06/07/21 22:45 06/07/21 22:36 06/07/21 22:10 06/07/21 22:00 06/07/21 21:50 06/07/21 21:41 06/07/21 21:20 06/07/21 21:10 06/07/21 21:00 06/07/21 20:50 06/07/21 20:41 06/07/21 19:54 06/07/21 19:53 Resident Activity Tracking Resident Involvement: Resident Care Provided Care Provided: Adult Hospital Medicine (1) Closed hip fracture Encounter type: initial encounter Laterality: right Qualified Code(s): S72.001A - Fracture of unspecified part of neck of right femur, initial encounter for closed fracture (2) Dislocation, shoulder, anterior Encounter type: initial encounter Laterality: right Qualified Code(s): S43.014A - Anterior dislocation of right humerus, initial encounter (3) Fracture of head of humerus Encounter type: initial encounter Fracture type: closed Laterality: right Qualified Code(s): S42.291A - Other displaced fracture of upper end of right humerus, initial encounter for closed fracture
--- NOTE | 2021-06-08 08:50 | CT Scan Report ---
CT shoulder RT wo con CLINICAL HISTORY: Right shoulder fracture/dislocation WITH 3D Recons COMPARISON STUDY: Standard radiographs from 06/07/2021 CT DOSE: 501.55 mGy.cm TECHNIQUE: Standard CT of the right shoulder is performed without IV contrast. Multiplanar reconstruc tion is performed. A dose lowering technique was utilized adhering to the principles of ALARA. 3-D r econstruction was also performed. FINDINGS: Bones: As seen radiographically, there is reduction of previously identified anterior shoulder disloc ation. As noted radiographically, there is a vertically oriented fracture through the bases of the tu berosities of the humeral head. This fracture is actually comminuted with multiple small bone fragmen ts present. There is cortical offset present. There are no lytic or blastic lesions. Joints: The humeral head maintains its anatomic position within the glenoid fossa. The acromioclavic ular joint is intact. The bones are in anatomic alignment. Soft tissues: There is soft tissue swelling present surrounding the shoulder. There are no focal flu id collections. 3-D Reconstruction: The findings described above are demonstrated on 3-D reconstruction imaging. IMPRESSION: 1. Humeral head in anatomic position relation to the glenoid. 2. Previously identified vertically oriented fracture through the bases of the tuberosities of the hu meral head is actually comminuted with multiple small fracture fragments present. Cortical offset is seen without significant displacement. ACT 112: Negative or not required by law. Electronically signed by: Frank Manzanares M.D. 06/08/2021 8:48 AM
--- NOTE | 2021-06-08 09:06 | Orthopedic Consultation ---
Date of Service June 08, 2021 Assessment & Plan (1) Dislocation, shoulder, anterior: The shoulders been relocated and she is in a sling. She does have a displaced greater tuberosity fracture which would likely benefit from some surgical management. We discussed treatment and will likely take her to the operating room tomorrow and fix this along with her hip fracture. Will lie likely reduce this in place some cannulated screws across the fracture along with some suture repair. The risks and benefits were explained to the patient and she understands and desires to proceed. (2) Greater tuberosity of humerus fracture: (3) Closed hip fracture: Order to get an MRI of her right hip to assess the fracture. Will make sure there is a true fracture and whether is displaced or not. If its valgus impacted will likely reduce cannulated screw fixation. If there is displacement of the fracture she will likely need a total hip replacement. Definitive plan will be based on the MRI. In the meantime will begin SCDs and GREYSON stockings for DVT prophylaxis. E today and plan on fixing her tomorrow morning. All questions were answered. History of Present Illness Reason for Consultation: . 1 right shoulder fracture dislocation. 2. Right hip fracture Requesting Physician: . Attending Physician: Dilip Lehman MD . Patient is a 71-year-old female from the [place] area who was up visiting and tripped over a suitcase yesterday. She fell on her right side. Acute onset of right shoulder pain and right hip pain. She brought the emergency room where x- rays were right shoulder fracture dislocation. She underwent closed reduction by the ER staff. No pre-existing shoulder problems on this side. Is had some left shoulder pain in the past. With respect to the right hip by she did fall her hip. She is got groin pain. No history of hip problems before. She does apparently have knee arthritis and is been considering knee replacement surgery. No new complaints in her knee. No head injury no loss conscious no neck pain. Allergies Allergy/AdvReac Type Severity Reaction Status Date / Time Penicillins Allergy Intermediate Rash Verified 06/07/21 20:32 Home Medications Medication Instructions Recorded Confirmed Type evolocumab 140 mg/mL subcutaneous 140 mg SUBCUT .Q2WK 06/07/21 06/07/21 History pen injector (Cassi Rodriguez) nifedipine 30 mg tablet,extended 30 mg PO DAILY 06/07/21 06/07/21 History release raloxifene 60 mg tablet 60 mg PO DAILY 06/07/21 06/07/21 History telmisartan 80 mg tablet 80 mg PO DAILY 06/07/21 06/07/21 History Past Med/Surg History Medical History (Updated 06/08/21 @ 09:04 by Jhonny Boland MD) Greater tuberosity of humerus fracture Hyperlipidemia Hypertension Osteoporosis Social History Smoking Status: Never smoker Hx Substance Use: No Preferred Language: Irish Feels Safe at Home: Yes Review of Systems All systems reviewed & are unremarkable except as noted in HPI & below. Physical Exam . Physical examination reveals a pleasant middle-aged female is lying in bed looks reasonably comfortable. Examination the right shoulder reveals the sling to be in place. There is no visible deformity to her shoulder. No segment swelling. She does have a pain and tenderness to palpation anywhere on her shoulder. She can extend and flex her fingers and wrist appropriately. In no particular elbow pain. No wrist pain. She is neurologically intact. I difficult to assess her deltoid function due to her pain. Examination the right hip reveals her leg to be slightly shortened and externally rotated and held in external rotation position. She has pain with any attempted hip motion. Minimal if any knee effusion. Got some bony hypert rophy around her knee. No bruising. She can dorsiflex and plantarflex her foot appropriately. Results & Data Results & Data Laboratory Results . Diagnostic Findings . X-rays of the right shoulder reveal a anterior shoulder fracture dislocation with a significant grade tuberosity fracture. We do a postreduction films with a shoulder be relocated. The greater tuberosity is distal placed a slightly. CT scan of the right shoulder is reviewed. It shows the shoulder to be located. She does have pretty significantly displaced greater greater tuberosity fracture about a centimeter displaced superior and posterior. The shoulder is located. X-rays of the right hip suggest a crack through the femoral neck with some degree of valgus impaction. Fairly poor quality x-ray due to rotation. Difficult to tell definitively. No major hip arthritis. PG Care Time/CCT Total # of Minutes Spent Total Time Spent with Patient: Total time spent is greater than 50% in coordination of care (as documented) at patient's floor/unit and/or counseling patient: Coding Level of Care Code 89477 Inpt Consult Level 5 Diagnoses Dislocation, shoulder, anterior S43.014A Encounter type: initial encounter Laterality: right Greater tuberosity of humerus fracture S42.253A Closed hip fracture S72.001A Encounter type: initial encounter Laterality: right (1) Dislocation, shoulder, anterior Encounter type: initial encounter Laterality: right Qualified Code(s): S43.014A - Anterior dislocation of right humerus, initial encounter (2) Closed hip fracture Encounter type: initial encounter Laterality: right Qualified Code(s): S72.001A - Fracture of unspecified part of neck of right femur, initial encounter for closed fracture
[2021-06-08] MEDS: RALOXIFENE HCL 60 MG TAB PO SCH (09:19)
[2021-06-08] MEDS: NIFEdipine EXTENDED REL 30 MG TABCR PO SCH (09:19)
[2021-06-08] MEDS: TELMISARTAN 40 MG TAB PO SCH (09:19)
--- NOTE | 2021-06-08 11:16 | XRay Report ---
XR chest 1V portable CLINICAL HISTORY: pre-op shoulder pain TECHNIQUE: Single frontal radiograph of the chest was obtained. Comparison: None available at the time of this dictation. FINDINGS: No lines and tubes are seen. The cardiomediastinal silhouette is normal. The lungs are clear. No evid ence of pleural effusion or pneumothorax. IMPRESSION: No acute chest disease. ACT 112: Negative or not required by law. Electronically signed by: Raul Russell M.D. 06/08/2021 11:15 AM
[2021-06-08] MEDS: HYDROCODONE/ACETAMOPHEN 5/325MG TAB PO PRN ×4 (11:45→22:55)
--- NOTE | 2021-06-08 13:14 | Magnetic Resonance Report ---
MR hip RT wo con CLINICAL HISTORY: Eval R hip fx COMPARISON: Comparison is made to hip radiograph 06/07/2021 TECHNIQUE: Multiplanar multisequence images were obtained of the abdomen the administration of contra st. FINDINGS: Bowel: Unremarkable. Lymph nodes: Unremarkable. Bladder: Unremarkable. Reproductive organs: Multiple fibroids are seen. Vessels: Unremarkable. Abdominal wall: Unremarkable. Bones: There is a subcapital fracture of the AP right hip with lateral impaction. Minimal surrounding edema is seen. The left hip and pelvis are unremarkable. IMPRESSION: Redemonstration of impacted right subcapital femoral neck fracture. ACT 112: Negative or not required by law. Electronically signed by: Raul Russell M.D. 06/08/2021 1:13 PM
--- NOTE | 2021-06-08 16:44 | Anesthesiology Consultation ---
Date of Service June 08, 2021 Assessment & Plan (1) Encounter for pre-operative examination: Chart Review Chart Review: Acceptable Risk for Surgery and Patient NOT seen in Pre Admission Testing Consults Requested none History Surgery Operation Date: 06/09/21 07:30 Proposed Procedures p Total Hip Arthroplasty Cemented - Jhonny Boland MD Height/Weight Height: 5 ft 2.4 in Weight: 58.06 kg Allergies Allergy/AdvReac Type Severity Reaction Status Date / Time Penicillins Allergy Intermediate Rash Verified 06/07/21 20:32 Medications Home Medications Medication Instructions Recorded Confirmed Last Taken evolocumab 140 mg/mL subcutaneous 140 mg SUBCUT .Q2WK 06/07/21 06/07/21 Unknown pen injector (Cassi Rodriguez) nifedipine 30 mg tablet,extended 30 mg PO DAILY 06/07/21 06/07/21 06/07/21 release raloxifene 60 mg tablet 60 mg PO DAILY 06/07/21 06/07/21 06/07/21 telmisartan 80 mg tablet 80 mg PO DAILY 06/07/21 06/07/21 06/07/21 Active Medications Generic Name Dose Route Start Last Admin Trade Name Freq PRN Reason Stop Dose Admin Hydrocodone Bitart/Acetaminophen 1 tab 06/08/21 04:44 06/08/21 14:45 Hydrocodone/Acetamophen 5/325mg Tab PO 06/22/21 04:43 1 tab Q4H PRN Administration MODERATE Pain (4,5,6) & Pre PT Lactated Ringer's 1,000 mls @ 60 mls/hr 06/08/21 01:45 06/08/21 14:45 Lr IV 07/08/21 01:44 60 mls/hr .[id number] TIFFANI Administration Nifedipine 30 mg 06/08/21 09:00 06/08/21 09:19 Nifedipine Extended Rel 30 Mg Tabcr PO 07/08/21 08:59 30 mg DAILY TIFFANI Administration Raloxifene HCl 60 mg 06/08/21 09:00 06/08/21 09:19 Raloxifene Hcl 60 Mg Tab PO 07/08/21 08:59 60 mg DAILY TIFFANI Administration Telmisartan 80 mg 06/08/21 09:00 06/08/21 09:19 Telmisartan 40 Mg Tab PO 07/08/21 08:59 80 mg DAILY TIFFANI Administration NPO Date Last Intake of Fluids: 06/07/21 Time Last Intake of Fluids: 16:30 Date Last Intake of Solids: 06/07/21 Time Last Intake of Solids: 16:30 Last Intake of Solids Comment: Crackers and Cheese Past Medical History Medical History Greater tuberosity of humerus fracture Hyperlipidemia Hypertension Osteoporosis Social History Smoking Status: Unknown if ever smoked Hx Substance Use: No Physical Exam Vital Signs Last Vital Signs Temp 98.8 F 06/08/21 15:25 Pulse 82 06/08/21 15:25 Resp 16 06/08/21 15:25 BP 154/80 H 06/08/21 15:25 Pulse Ox 90 06/08/21 15:25 Testing Laboratory Results 06/07/21 22:00 06/07/21 22:00 PT 9.9 Seconds (9.0-12.0) 06/07/21 22:00 INR 1.0 (0.9-1.1) 06/07/21 22:00 Blood Type AB Positive 06/08/21 10:39 Antibody Screen NEGATIVE 06/08/21 10:39 Electrocardiogram Date: 06/08/21 Findings: + NSR @
--- NOTE | 2021-06-08 19:11 | Progress Notes ---
DATE OF SERVICE: 06/08/2021 SUBJECTIVE: Tisha is a 71-year-old female status post a fall with a right proximal humerus/shoulder fracture dislocation and a nondisplaced femoral neck fracture, valgus impacted. I saw her earlier t carmen. We got an MRI of her hip. She is scheduled for surgery tomorrow. I reviewed her MRI of her hip. It shows a valgus impacted femoral neck fracture. There are no signs of significant displacement. No underlying hip arthritis. ASSESSMENT: A 71-year-old female with, 1. Right proximal humerus fracture dislocation with a displaced greater tuberosity fracture. 2. Right valgus impacted femoral neck fracture. PLAN: We talked about treatment options. We are going to take her to the operating room and do marlyn ulated screw fixation of her femoral neck fracture. We will also do an open reduction and internal f ixation of the right shoulder fracture dislocation in order to reduce the tuberosity piece and also t o fix it in the proper position and hopefully stabilize it so that she is able to use her arm a littl e bit with a walker postoperatively. The risks and benefits were explained to the patient and her hu sband extensively including but not limited to DVT, PE, , infection, neurological injury, vascul ar injury, failure to heal, need for further surgery in the future, avascular necrosis, need for hip replacement surgery. The patient understands and desires to proceed. Informed consent was obtained. Job ID: [id number]
[2021-06-08] MEDS: DOCUSATE SODIUM/SENNA 50/8.6MG TAB PO SCH (21:00)
[2021-06-09] MEDS: HYDROCODONE/ACETAMOPHEN 5/325MG TAB PO PRN ×3 (04:05→22:04)
[2021-06-09] MEDS ORDERED: ROPIVACAINE 0.5% 5 MG/ML 30 ML VIAL ONE (07:09)
[2021-06-09] MEDS ORDERED: fentaNYL citrate 100 MCG/2 ML VIAL ONE ×2 (07:17)
[2021-06-09] MEDS ORDERED: MIDAZOLAM HCL 1 MG/ML 2ML VIAL ONE (07:19)
[2021-06-09] MEDS ORDERED: PROPOFOL IV EMULSION 10 MG/ML 20 ML VIAL IV ONE (07:24)
[2021-06-09] MEDS ORDERED: LIDOCAINE 2% 2 ML VIAL/AMP(20MG/ML) INFIL ONE (07:24)
[2021-06-09] MEDS ORDERED: ROCURONIUM BROMIDE 10 MG/ML 5 ML VIAL IV ONE (07:24)
--- NOTE | 2021-06-09 07:26 | History & Physical Bridge Note ---
Date of Service June 09, 2021 History & Physical Bridge Note I have examined the patient, reviewed the History & Physical and in the interval since the performance of the History & Physical I have noted the following changes of clinical significance: no changes noted
[2021-06-09] MEDS ORDERED: ACETAMINOPHEN 1000 MG/100 ML IV IV ONE (07:27)
[2021-06-09] MEDS ORDERED: SCOPOLAMINE 1 MG TDSY TD ONE (07:27)
[2021-06-09] MEDS ORDERED: FAMOTIDINE/PF 20 MG/2 ML VIAL IV ONE (07:27)
[2021-06-09] MEDS ORDERED: ONDANSETRON INJ 2 MG/ML 2 ML VIAL IV PRN (07:50)
[2021-06-09] MEDS ORDERED: ATROPINE SULFATE 0.1 MG/ML 10ML SYR IV PRN (07:50)
[2021-06-09] MEDS ORDERED: ePHEDrine sulfate 50 MG/ML AMP IV PRN (07:50)
[2021-06-09] MEDS ORDERED: fentaNYL citrate 100 MCG/2 ML VIAL IV PRN (07:50)
[2021-06-09] MEDS ORDERED: EPINEPHrine INJ 1 MG/ML AMP ONE (07:52)
[2021-06-09] MEDS ORDERED: BUPIVACAINE 0.5 % 5 MG/1 ML MPF 30ML VIAL ONE (07:53)
--- NOTE | 2021-06-09 07:54 | Hospitalist Progress Note ---
Date of Service June 09, 2021 Assessment & Plan (1) Fracture of head of humerus: Plan: Tisha is a 71-year-old female with a history of osteoporosis who presented to [facility] following a mechanical fall over a misplaced suitcase, subsequently found to have a RIGHT femoral neck fracture, RIGHT anterior shoulder dislocation, and RIGHT humeral head fracture. She is hemodynamically stable. Closed Fracture of R Hip - In setting of mechanical fall, anterior shoulder dislocation, and known history of osteoporosis - XR, MRI demonstrating: "evidence for a laterally impacted, subcapital fracture of the R femoral neck" - Hemodynamically stable since arrival: VSS, Hgb within goal-ranges - Orthopedics consulted: to the OR today. - Pain control: Tylenol > Western > Dilaudid - Will require PT, OT Humeral Head Fracture - In setting of mechanical fall, anterior shoulder dislocation, and known history of osteoporosis - XR revealing of "vertically oriented fracture through humeral head" - CT demonstrating the above, alongside humeral head comminution with multiple small fractures and mild cortical offset. No significant displacement. - Orthopedics consulted: To the OR for procedural correction. - PT, OT Right Anterior Shoulder Dislocation - In setting of mechanical fall as previously described - s/p successful reduction in the ER on 06/07 - See above -- to the OR - Orthopedics consulted, as above Osteoporosis - In the setting of the above issues, patient has known history of osteoporosis - Continue raloxifene HTN - Continue telmesartan, nifedipine while here given normo-hypertension readings - Low threshold to ween/hold if any concerns of bleeding HLD - Continue Repatha Code: FULL CODE Dispo: MS/Tele Diet: Resume diet post-procedure PPX: SCDs; hold pharmacologics in setting of recent trauma until cleared by orthopedics (2) Dislocation, shoulder, anterior: (3) Closed hip fracture: (4) Hypertension: (5) Osteoporosis: (6) Hyperlipidemia: Admission and Anticipated Discharge Date Admission Date: June 08, 2021 Supervising Physician Co-Signing Physician Notes Patient seen and examoined at [facility]. D/W Dr. Sifuentes. Patient reports feeling well, her pain is controlled. She is s/p Cannulated screw fixation right femoral neck fracture(Right) and Open reduction internal fixation right greater tuberosity fracture/dislocation will await PT/OT evals tomorrow, likely will require placement. Subjective Doing well post-op. Still a little groggy. Got RUE nerve block so arm is numb - but can move fingers without difficulty. Unable to provide much reflection on pain right now. No n/v. Breathing is good. No CP. Review of Systems Review of Systems: as per HPI Physical Exam Physical Exam: General: Tired appearing 71yoF in NAD. Fully A&O. Pulmonary: Good respiratory effort with symmetric expansion of the chest. No use of accessory muscles. No conversational dyspnea. Abdominal: Soft, nontender, nondistended Extremities: R shoulder in sling. Peripheral motor strength of RUE in-tact, as is sensation to light touch and biceps reflex 2+. RLE without lateral bruising. Bandage c/d/i. Distal strength and sensation in-tact. Capillary refill < 3 seconds. Results & Data Results & Data ([facility]) Vital Signs (Past 12 Hours) Vital Signs Temp Pulse Resp BP Pulse Ox 06/09/21 06:09 37.3 C 94 H 17 126/77 91 06/08/21 22:03 37.3 C 94 H 16 134/88 94 Resident Activity Tracking Resident Involvement: Resident Care Provided Care Provided: Adult [facility] Medicine (1) Closed hip fracture Encounter type: initial encounter Laterality: right Qualified Code(s): S72.001A - Fracture of unspecified part of neck of right femur, initial encounter for closed fracture (2) Dislocation, shoulder, anterior Encounter type: initial encounter Laterality: right Qualified Code(s): S43.014A - Anterior dislocation of right humerus, initial encounter (3) Fracture of head of humerus Encounter type: initial encounter Fracture type: closed Laterality: right Qualified Code(s): S42.291A - Other displaced fracture of upper end of right humerus, initial encounter for closed fracture
[2021-06-09 08:20] LABS: Basophils # (auto) 0.05 K/uL (0-0.2); Basophils % (auto) 0.5 %; Eosinophils % (auto) 0.9 %; Hematocrit (blood only) 37.1 % (37-47); Hemoglobin 12.4 g/dL (12.0-16.0); Immature Granulocytes # (auto) 0.03 K/uL (0.00-0.02); Immature Granulocytes % (auto) 0.3 %; Lymphocytes % (auto) 12.6 %; Mean Corpuscular Hemoglobin 30.9 pg (25-34); Mean Corpuscular Hgb Conc 33.4 g/dL (32-36); Mean Corpuscular Volume 92.5 fL (80-100); Mean Platelet Volume 10.4 fL (7.4-10.4); Monocytes # (auto) 0.76 K/uL (0.11-0.59); Monocytes % (auto) 6.8 %; Neutrophils # (auto) 8.76 K/uL (1.4-6.5); Neutrophils % (auto) 78.9 %; Platelet Count 250 K/uL (130-400); RDW Coefficient of Variation 13.8 % (11.5-14.5); Red Blood Count 4.01 M/uL (4.2-5.4)
[2021-06-09] MEDS ORDERED: DEXAMETHASONE SOD INJ 4 MG/ML VIAL ONE (08:43)
[2021-06-09] MEDS ORDERED: ONDANSETRON INJ 2 MG/ML 2 ML VIAL ONE (08:43)
[2021-06-09] MEDS ORDERED: diphenhydrAMINE 50 MG/ML VIAL ONE (08:43)
[2021-06-09] MEDS ORDERED: METOCLOPRAMIDE HCL INJ 5 MG/ML 2 ML VIAL ONE (08:43)
[2021-06-09] MEDS ORDERED: GLYCOPYRROLATE 0.2 MG/ML VIAL ONE (08:47)
[2021-06-09] MEDS ORDERED: ePHEDrine sulfate 50 MG/ML SYR ONE (08:47)
[2021-06-09] MEDS ORDERED: NEOSTIGMINE METHYLSULFATE 1 MG/ML 10ML VIAL ONE (08:47)
[2021-06-09 08:48] LABS: Albumin Level 3.1 gm/dl (3.4-5.0); BUN Creatinine Ratio 16.5 (10-20); Calcium 8.5 mg/dl (8.5-10.1); Creatinine Clr Calc Pharmacy 68.3 ml/min; Est GFR (African American) 105.5 ml/min; Est GFR (Non-African American) 91.1 ml/min; Potassium 3.6 mmol/L (3.5-5.1)
[2021-06-09 08:50] LABS: Albumin Globulin Ratio 0.9 (0.9-2); Globulin 3.4 gm/dl (2.5-4.0); Total Protein 6.5 gm/dl (6.4-8.2)
[2021-06-09] MEDS ORDERED: ceFAZolin 2000MG 2,000 MG/15 ML SYR IV ONE (09:03)
[2021-06-09 09:12] LABS: Bilirubin,Total 0.7 mg/dl (0.2-1)
[2021-06-09] MEDS ORDERED: PHENYLEPHRINE HCL 10 MG/ML VIAL ONE (10:09)
[2021-06-09] MEDS ORDERED: KETOROLAC 30 MG/ML VIAL ONE (10:16)
--- NOTE | 2021-06-09 11:25 | Operative Report ---
Post Operative Report Pre & Post Diagnosis Operation Date: 06/09/21 07:30 Pre-Op Diagnosis: Right valgus impacted femoral neck/hip fracture Right shoulder fracture dislocation with a displaced greater tuberosity fragment Post-Op Diagnosis: Right valgus impacted femoral neck/hip fracture Right shoulder fracture dislocation with a displaced greater tuberosity fragment I identified the patient and participated in the time-out.: Yes Procedure Operation Date: 06/09/21 07:30 Actual Procedures p Cannulated screw fixation right femoral neck fracture(Right) - Jhonny Boland MD s Open reduction internal fixation right greater tuberosity fracture/dislocation - Jhonny Boland MD Surgeon Jhonny Boland MD Elevator Examiner And Adjuster Dexter Martinez PA-C Estimated Blood Loss 100 Findings Consistent with Post-Op Diagnosis Specimens None Anesthesia Type General Regional Complications none Disposition Accompanied Patient To Recovery: No Indications Patient is a 71-year-old somewhat ambidextrous female sustained a fall later on [employer]. She tripped over a suitcase and fell on her right side. Acute onset of right shoulder pain as well as right hip pain. She brought the emergency room where x-rays ruled out right anterior shoulder fracture dislocation with a greater tuberosity fragment and a valgus impacted femoral neck fracture. She underwent a closed reduction in the emergency room. The fracture continue to be displaced around the tuberosity. Patient indicated for surgical treatment of her shoulder. The patient also had a valgus impacted femoral neck fracture which was confirmed by MRI. Patient indicated for surgical treatment. No underlying hip arthritis. Description of Procedure Operative implants consisted of: Shoulder implants consist of: 1. 4.5 partially-threaded cannulated cancellous screw with a washer x1. 2. 4.0 partially-threaded cannulated cancellous screw x2 with a washer x2 Right hip implants consisted of: 1. 7.3 short threaded cannulated screw x1. 2. 6.5 partially-threaded long threaded cancellous screws x2 1 with a washer. The patient was taken the operating, identified, placed on the operating table supine position protectors were properly padded. IV antibiotics tried by anesthesia team. A interscalene block had provided in the holding area. A general anesthetic was implemented. The patient was then placed in the fracture table. The right leg was placed in boot traction the left leg was placed in a well-leg georges. Applied some longitudinal traction to the leg and internally rotated the foot. X-ray was brought in. Even with this we did distract the fracture site slightly so I did take off the traction made sure it was impacted than left at and the valgus impacted in good position. The right hip was then scrubbed with Hibiclens and prepped with ChloraPrep and draped in usual sterile fashion. A direct lateral approach to the proximal femur was then performed to a longitudinal incision. Sharp dissection got through subcutaneous tissue down below the IT band gluteal fascia the IT band gluteal fascia incised longitudinally in line with the skin incision. The vastus lateralis was retracted anteriorly. I then drilled a small hole just at the level of the lesser trochanter with a 5.0 drill and a guidewire was placed in the inferior aspect of the femoral neck on both the AP and lateral planes. I then used the parallel pin guide to place 2 additional pins of one superior and posterior one superior and anterior to this. I then placed a 7.3 cannulated screw over the inferior guidewire and two 6.5 partially-threaded cancellous screws over the superior guidewires. I did place a washer over the posterior screw to maximize compression and fixation. Some final x-rays were obtained. The wound was irrigated. The I did inject with 20 cc of absent Marcaine with epinephrine. The IT band was then closed with #1 Vicryl suture in a running fashion for subcutaneous tissue then closed with 2 Dexon suture in a buried interrupted fashion the skin was closed skin mary. Leg was then cleaned and dried a sterile dressing was Xeroform, 4 x 4's, ABD pad, foam tape were applied. Attention drawn the right shoulder. The patient was then put taken off the fracture table and transported to a regular bed with a [employer] shoulder positioner. Patient was placed in a beachchair position. All contact areas were meticulously padded. I brought an x-ray to make sure we can get adequate visualization. The right shoulder was then prepped and draped in usual sterile fashion. A superior approach to the shoulder was then performed through a longitudinal incision about a centimeter posterior to the anterior aspect of the acromion extending down the deltoid. Sharp dialysis cath through subcutaneous is done over the deltoid. The deltoid was then split just posterior to the anterior edge of the acromion and then dissected laterally about 3 cm. The anterior deltoid was stripped off the anterior aspect of acromion. Great care was taken to protect the axillary nerve laterally. I then mobilized the fracture and debrided of all clot. I then reduced the fracture which was slightly commi nuted. We fixed it with a 3 K wires. I then placed a single 4.0 partially- threaded cancellous screw with a washer superiorly and then to 4.0 cannulated screws inferiorly. We did leave the screws just a little bit long as her bone was pretty osteoporotic and we really need to get cortical purchase to get fixation. The shoulder was taken through range of motion. The fragment was well fixed. I then repaired the rotator interval with #1 Vicryl suture in a hxvato-rb-naneu fashion. The wounds irrigated with copious amounts normal saline. I did inject locally with 10 cc of half percent Marcaine with epinephrine. The deltoid was then repaired to the anterior acromion with #2 Tycron suture. The lateral split the deltoid was repaired with #1 Vicryl suture. The subcutaneous tissues then closed with 2 Dexon suture in a buried knot fashion skin was closed with 3-0 Prolene suture in subicular fashion. The arm was then cleaned and dried a sterile dressing composed of Steri-Strips, Xeroform, 4 x 4's, and a Tegaderm dressing followed by a shoulder immobilizer applied. Patient then brought out of general anesthesia and transferred to the recovery room in stable condition. Patient tolerated procedure well and there were no complications. Dexter Martinez, my physician catering assistant, was present for the entire procedure. His assistance was required for proper patient positioning, prepping and draping, surgical exposure, perform the technical details the operation, retraction, closure of the wound, placement of sterile bandage and sling. I attest to the content of the Intraoperative Record and any orders documented therein. Any exceptions are noted below.
[2021-06-09] MEDS: LACTATED RINGER'S 1,000 ML IV SCH (11:35)
--- NOTE | 2021-06-09 11:41 | Electrocardiogram Report ---
Test Reason : Blood Pressure : / mmHG Vent. Rate : 082 BPM Atrial Rate : 082 BPM P-R Int : 116 ms QRS Dur : 088 ms QT Int : 358 ms P-R-T Axes : 003 003 035 degrees QTc Int : 418 ms Normal sinus rhythm Normal ECG No previous ECGs available Confirmed by Jesus Pickard ([id number]) on 06/09/2021 11:40:42 AM Referred By: REFERRED SELF Confirmed By:Jesus Pickard
--- NOTE | 2021-06-09 11:54 | Anesthesiology Progress Note ---
Date of Service June 09, 2021 Anesthesia Post Procedure Vital Signs Vital Signs: Temp Pulse Pulse Resp BP Pulse Ox 06/09/21 11:45 114 H 19 141/86 H 93 06/09/21 11:35 87 13 123/68 99 06/09/21 11:25 103 H 13 112/77 95 06/09/21 11:16 97.2 F L 117 H 15 123/78 96 06/09/21 06:09 99.1 F 94 H 17 126/77 91 06/08/21 22:03 99.1 F 94 H 16 134/88 94 06/08/21 15:25 98.8 F 82 16 154/80 H 90 Pain Intensity Right Shoulder: Pain Intensity: 8 Right Hip: Pain Intensity: 5 Transfer of Care Handoff Completed per policy Notes Mental Status: alert / awake / arousable and participated in evaluation Patient Amnestic to Procedure: Yes Nausea / Vomiting: adequately controlled Pain: adequately controlled Airway Patency, RR, SpO2: stable & adequate BP & HR: stable & adequate Hydration State: stable & adequate Anesthetic Complications: no major complications apparent and Pt Satisfied with anesthetic care
--- NOTE | 2021-06-09 12:15 | Fluoroscopy Report ---
FL hip RT 2-3V CLINICAL HISTORY: RIGHT HIP SURGERY. Subcapital fracture COMPARISON STUDY: Right hip films from 06/07/2021 FLUOROSCOPY TIME: 59 seconds. FLUOROSCOPIC IMAGES: 2 FINDINGS: 3 cancellus screws are seen transfixing a laterally impacted, subcapital fracture of the ri ght femoral neck. IMPRESSION: Status post internal fixation ACT 112: Negative or not required by law. Electronically signed by: Frank Manzanares M.D. 06/09/2021 12:14 PM
--- NOTE | 2021-06-09 12:16 | Fluoroscopy Report ---
FL shoulder RT min 2V CLINICAL HISTORY: RIGHT SHOULDER SURGERY. Right shoulder fracture COMPARISON STUDY: 06/07/2021 FLUOROSCOPY TIME: 40 seconds. FLUOROSCOPIC IMAGES: 3 FINDINGS: 3 cancellus screws are seen transfixing a vertically oriented fracture through the base of the tuberosities of the humeral head. IMPRESSION: Status post internal fixation ACT 112: Negative or not required by law. Electronically signed by: Frank Manzanares M.D. 06/09/2021 12:15 PM
[2021-06-09] MEDS: NIFEdipine EXTENDED REL 30 MG TABCR PO SCH (13:55)
[2021-06-09] MEDS: TELMISARTAN 40 MG TAB PO SCH (13:56)
[2021-06-09] MEDS: RALOXIFENE HCL 60 MG TAB PO SCH (13:56)
[2021-06-09] MEDS: ASPIRIN 81 MG ECTAB PO SCH (20:50)
[2021-06-09] MEDS: DOCUSATE SODIUM/SENNA 50/8.6MG TAB PO SCH (20:50)
--- NOTE | 2021-06-09 22:24 | Billing Data ---
Date of Service June 09, 2021 Coding Level of Care Code 23307 Subseq Hosp Care Lvl 2
[2021-06-10] MEDS: HYDROCODONE/ACETAMOPHEN 5/325MG TAB PO PRN ×5 (02:04→19:26)
[2021-06-10] MEDS: LACTATED RINGER'S 1,000 ML IV SCH (05:10)
[2021-06-10 06:08] LABS: Basophils # (auto) 0.02 K/uL (0-0.2); Basophils % (auto) 0.2 %; Eosinophils # (auto) 0.03 K/uL (0-0.5); Eosinophils % (auto) 0.2 %; Hematocrit (blood only) 34.5 % (37-47); Hemoglobin 11.2 g/dL (12.0-16.0); Immature Granulocytes # (auto) 0.03 K/uL (0.00-0.02); Immature Granulocytes % (auto) 0.2 %; Lymphocytes # (auto) 1.69 K/uL (1.2-3.4); Lymphocytes % (auto) 13.1 %; Mean Corpuscular Hemoglobin 30.7 pg (25-34); Mean Corpuscular Hgb Conc 32.5 g/dL (32-36); Mean Corpuscular Volume 94.5 fL (80-100); Mean Platelet Volume 10.3 fL (7.4-10.4); Monocytes # (auto) 1.22 K/uL (0.11-0.59); Monocytes % (auto) 9.5 %; Neutrophils % (auto) 76.8 %; Platelet Count 248 K/uL (130-400); RDW Coefficient of Variation 13.9 % (11.5-14.5); RDW Standard Deviation 48.4 fL (36.4-46.3); Red Blood Count 3.65 M/uL (4.2-5.4); White Blood Count 12.89 K/uL (4.8-10.8)
--- NOTE | 2021-06-10 06:36 | Orthopedic Progress Note ---
Date of Service June 10, 2021 Assessment & Plan (1) Greater tuberosity of humerus fracture: (2) Closed hip fracture: Overall she is doing fairly well. She is having little more soreness in the shoulder than her hip. That is to be expected. She can have her dressing changed on postop day #2. She will be in the right arm sling for 6 weeks. She is to be partial weightbearing on her right hip and her right shoulder. She will be seen by physical therapy today. She is on aspirin for DVT prophylaxis. She is orthopedically stable for discharge when medically ready. Full orthopedic discharge instructions were placed in the discharge summary. Samanta Giles was seen and examined at bedside this morning. Overall she is doing fairly well. She is having some soreness in the right shoulder. She has not been out of bed yet. She has no complaints. Review of Systems All systems reviewed & are unremarkable except as noted in HPI & below. Physical Exam On physical examination of the right shoulder, the dressing is clean and dry. She is wearing her sling as instructed. Her radial, median, and ulnar nerves are checked intact at her wrist. Her axillary nerve was not checked yet. On physical examination of her right hip the dressing is clean and dry. She is active dorsiflexion plantarflexion of her right ankle. Results & Data Results & Data Laboratory Results . Diagnostic Findings . PG Care Time/CCT Total # of Minutes Spent Total Time Spent with Patient: Total time spent is greater than 50% in coordination of care (as documented) at patient's floor/unit and/or counseling patient: Coding Level of Care Code 29865 Post Operative Follow-Up Diagnoses Greater tuberosity of humerus fracture S42.253A Closed hip fracture S72.001A Encounter type: initial encounter Laterality: right (1) Closed hip fracture Encounter type: initial encounter Laterality: right Qualified Code(s): S72.001A - Fracture of unspecified part of neck of right femur, initial encounter for closed fracture
--- NOTE | 2021-06-10 06:37 | Hospitalist Progress Note ---
Date of Service June 10, 2021 Assessment & Plan (1) Fracture of head of humerus: Plan: Tisha is a 71-year-old female with a history of osteoporosis who presented to [facility] following a mechanical fall over a misplaced suitcase, subsequently found to have a RIGHT femoral neck fracture, RIGHT anterior shoulder dislocation, and RIGHT humeral head fracture. She is hemodynamically stable. Closed Fracture of R Hip - In setting of mechanical fall, anterior shoulder dislocation, and known history of osteoporosis - XR, MRI demonstrating: "evidence for a laterally impacted, subcapital fracture of the R femoral neck" - Hemodynamically stable since arrival: VSS, Hgb within goal-ranges - Orthopedics consulted: s/p surgical repair 06/09 - Pain control: Tylenol > [place] > Dilaudid (has not required Dilaudid) - PT/OT: will likely be appropriate for dc with home health Humeral Head Fracture - In setting of mechanical fall, anterior shoulder dislocation, and known history of osteoporosis - XR revealing of "vertically oriented fracture through humeral head" - CT demonstrating the above, alongside humeral head comminution with multiple small fractures and mild cortical offset. No significant displacement. - Orthopedics consulted: s/p surgical repair 06/09 - PT, OT Right Anterior Shoulder Dislocation - In setting of mechanical fall as previously described - s/p successful reduction in the ER on 06/07 - See above -- to the OR - Orthopedics consulted, as above Osteoporosis - In the setting of the above issues, patient has known history of osteoporosis - Continue raloxifene HTN - Continue telmesartan, nifedipine while here given normo-hypertension readings - Low threshold to wean/hold if any concerns of bleeding HLD - Continue Repatha Code: FULL CODE Dispo: Medsurg -- likely DC tomorrow if pain controlled and no issues overnight Diet: HH PPX: ASA 81mg BID per ortho (2) Dislocation, shoulder, anterior: (3) Closed hip fracture: (4) Hypertension: (5) Osteoporosis: (6) Hyperlipidemia: Admission and Anticipated Discharge Date Admission Date: June 08, 2021 Supervising Physician Co-Signing Physician Notes I also saw the patient and confirmed xiong portions of the history and physical examination. Agree with impression and plan as noted in resident documentation Upon examination, the patient is seated in the bedside chair. Her pain is well controlled current. Physical therapy has seen her today and she did much better with a walker retrofilled to correlate her right humeral fracture Exam 152/72, 85, 12, 36.9, 91% on room air Heart regular Respirations nonlabored Data WBC 12.9, hemoglobin 11.2 Sodium 141, potassium 4.1, BUN 13, creatinine 0.64 A/P Right hip fracture Right humeral head fracture Right anterior shoulder dislocation Reviewed physical therapy notes; plan will be to discharge home with home services. She will likely stay in her [place] home for another two weeks until her orthopedic follow-up, then return to her home in [place]. Hypertension Restart home medication Else per resident documentation Subjective NAEO. She feels well-controlled with pain medications. Feels confident she would do well with home therapy as she has good support and can maneuver around the home, especially with the walker she was given. No n-v, abd pain, SOB, cough, CP, palp. Review of Systems Review of Systems: per HPI Physical Exam Physical Exam: General:WD/WN, NAD, A&Ox3. Pulmonary: Good respiratory effort with symmetric expansion of the chest. No use of accessory muscles. No conversational dyspnea. Abdominal: Soft, nontender, nondistended Extremities: R shoulder in sling. Peripheral motor strength of RUE in-tact, as is sensation to light touch and biceps reflex 2+. RLE without lateral bruising. Bandage c/d/i. Distal strength and sensation in-tact. Capillary refill < 3 seconds. Results & Data Results & Data ([facility]) Vital Signs (Past 12 Hours) Vital Signs Temp Pulse Resp BP Pulse Ox 06/10/21 04:15 36.9 C 75 16 153/84 H 91 06/10/21 02:05 36.5 C 89 16 151/81 H 94 06/09/21 22:47 37 C 73 16 150/76 H 92 06/09/21 19:51 36.8 C 84 16 151/91 H 94 Resident Activity Tracking Resident Involvement: Resident Care Provided Care Provided: Adult Hospital Medicine (1) Closed hip fracture Encounter type: initial encounter Laterality: right Qualified Code(s): S72.001A - Fracture of unspecified part of neck of right femur, initial encounter for closed fracture (2) Dislocation, shoulder, anterior Encounter type: initial encounter Laterality: right Qualified Code(s): S43.014A - Anterior dislocation of right humerus, initial encounter (3) Fracture of head of humerus Encounter type: initial encounter Fracture type: closed Laterality: right Qualified Code(s): S42.291A - Other displaced fracture of upper end of right humerus, initial encounter for closed fracture
[2021-06-10 06:51] LABS: Albumin Level 2.7 gm/dl (3.4-5.0); BUN Creatinine Ratio 20.6 (10-20); Calcium 8.6 mg/dl (8.5-10.1); Est GFR (African American) 103.3 ml/min; Est GFR (Non-African American) 89.2 ml/min; Potassium 4.1 mmol/L (3.5-5.1)
[2021-06-10 06:53] LABS: Albumin Globulin Ratio 0.8 (0.9-2); Bilirubin,Total 0.3 mg/dl (0.2-1); Globulin 3.3 gm/dl (2.5-4.0)
[2021-06-10] MEDS: TELMISARTAN 40 MG TAB PO SCH (07:19)
[2021-06-10] MEDS: ASPIRIN 81 MG ECTAB PO SCH ×2 (07:19→21:13)
[2021-06-10] MEDS: NIFEdipine EXTENDED REL 30 MG TABCR PO SCH (07:19)
[2021-06-10] MEDS: RALOXIFENE HCL 60 MG TAB PO SCH (07:20)
[2021-06-10] MEDS: DOCUSATE SODIUM/SENNA 50/8.6MG TAB PO SCH (20:34)
[2021-06-11] MEDS: HYDROCODONE/ACETAMOPHEN 5/325MG TAB PO PRN ×2 (05:28→14:34)
[2021-06-11 07:31] LABS: Hematocrit (blood only) 32.5 % (37-47); Hemoglobin 10.9 g/dL (12.0-16.0)
[2021-06-11] MEDS: RALOXIFENE HCL 60 MG TAB PO SCH (07:33)
[2021-06-11] MEDS: TELMISARTAN 40 MG TAB PO SCH (07:33)
[2021-06-11] MEDS: NIFEdipine EXTENDED REL 30 MG TABCR PO SCH (07:33)
--- NOTE | 2021-06-11 07:45 | Discharge Summary ---
Date of Service June 11, 2021 Admission HPI Per Admitting Provider The patient is a 71-year-old female with past medical history including hypertension and osteoporosis, who presents with symptoms as noted above. Abnormal imaging studies: Lateral impacted subcapital right femoral neck fracture. Anterior shoulder dislocation, with vertical fracture through humeral head. Subsequent imaging shows reduction of shoulder Principal Diagnosis Right hip fracture, right shoulder fracture Discharge Exam General:WD/WN, NAD, A&Ox3. Pulmonary: Good respiratory effort with symmetric expansion of the chest. No use of accessory muscles. No conversational dyspnea. Abdominal: Soft, nontender, nondistended Extremities: R shoulder in sling. Peripheral motor strength of RUE in-tact, as is sensation to light touch and biceps reflex 2+. RLE without lateral bruising. Bandage c/d/i. Distal strength and sensation in-tact. Capillary refill < 3 seconds. Discharge Data Allergies Allergy/AdvReac Type Severity Reaction Status Date / Time Penicillins Allergy Intermediate Rash Verified 06/07/21 20:32 Consultations 06/07/21 23:58 ED Decision to Admit Stat Procedures Performed Operation Date: 06/09/21 07:30 Actual Procedures p Cannulated fixation right femoral neck fracture(Right) - Jhonny Boland MD s Open reduction internal fixation right greater tuberosity fracture(Right) - Jhonny Boland MD Ordered Studies 06/08/21 05:32 CT shoulder RT wo con Urgent 06/08/21 07:00 MR hip RT wo con Routine 06/09/21 FL hip RT 2-3V Routine FL shoulder RT min 2V Routine 06/09/21 07:50 US - OR guided needle placemen Routine Hospital Course (1) Fracture of head of humerus: Tisha is a 71-year-old female with a history of osteoporosis who presented to [facility] following a mechanical fall over a misplaced suitcase, subs equently found to have a RIGHT femoral neck fracture, RIGHT anterior shoulder dislocation, and RIGHT humeral head fracture Closed Fracture of R Hip - In setting of mechanical fall, anterior shoulder dislocation, and known history of osteoporosis - XR, MRI demonstrating: "evidence for a laterally impacted, subcapital fracture of the R femoral neck" - Hemodynamically stable since arrival: VSS, Hgb within goal-ranges - Orthopedics consulted: s/p surgical repair 06/09 - Pain control: Tylenol at home, will prescribe short course of Truchas at discharge - PT/OT -- appropriate for home with home health - likely stay in her [place] home for another two weeks until her orthopedic follow-up, then return to her home in [place]. Humeral Head Fracture - In setting of mechanical fall, anterior shoulder dislocation, and known history of osteoporosis - XR revealing of "vertically oriented fracture through humeral head" - CT demonstrating the above, alongside humeral head comminution with multiple small fractures and mild cortical offset. No significant displacement. - Orthopedics consulted: s/p surgical repair 06/09 - PT/OT Right Anterior Shoulder Dislocation - In setting of mechanical fall as previously described - s/p successful reduction in the ER on 06/07 - Orthopedics consulted, as above Osteoporosis - In the setting of the above issues, patient has known history of osteoporosis - Continued raloxifene HTN - Continued telmisartan, nifedipine HLD - Continued Repatha Dispo: Home with home health, f/u with Orthopedics (2) Dislocation, shoulder, anterior: (3) Closed hip fracture: (4) Hypertension: (5) Osteoporosis: (6) Hyperlipidemia: Total Time Total Time Spent Total Time Spent (In Minutes): 30 minutes, this includes seen the patient, documentation, and electronic transmission of a controlled substance Discharge Plan Discharge Items Patient Disposition: Home - Home Health Services Reason For Visit: RT FEMORAL NECK, RIGHT HUMERAL HEAD FX Discharge Diagnosis: Right Femoral Neck Fracture ORIF Right [place]oulder Fracture/Dislocation ORIF Activity: Per Instructions section Activity Comment: Partial Weightbearing right leg for 6 weeks. Passive ROM right shoulder + Weightbearing: Right partial Non-emergency contact: Primary Care Provider and Surgeon Call non-emergency contact if: you have any medication questions Follow-up/Referrals: Jhonny Boland MD [Physician] - (Orthopedic follow-up 2-3 weeks from surgery date.) PCP,NO [Primary Care Provider] - Diet: Heart Healthy Addtl Attending Provider Instructions: You were admitted to [facility] due to a fall resulting in a fracture of your right humerus, right femur, and a shoulder dislocation. You were evaluated by orthopedics who recommended surgical intervention. This was done on 06/09/2021. After evaluation by PT/OT you were deemed safe for return home with home health rehab services. Please see orthopedic surgery instructions below. ORTHOPEDIC INSTRUCTIONS Activity and Therapy Recommendations: 1. You were shown a series of exercises in the hospital. Do these exercises three times each day if you are able. 2. You will be partial weightbearing on your right hip for 6 weeks. Make sure you have assistance is needed. For the first four weeks, try not to stand or walk for more than one hour at a time. If you do stand or walk for more than one hour, you will not hurt anything, but your leg will likely swell. 3. You will be partial weightbearing on your right shoulder for 6 weeks. You will need to wear the right arm sling for 6 weeks. You can do some passive range of motion exercises with your hand, wrist, and your elbow. He can do gentle pendulum exercises with your right shoulder. Medications: 1. Narcotic You will likely be sent from the hospital with the narcotic pain medication that worked best throughout your stay. 2. Aspirin-take aspirin 81 mg twice a day for 6 weeks to prevent blood clots 3. Other medications may be given for specific circumstances. If you have any questions, please call the office at [phone]. 4. Resume previous home medications unless otherwise instructed Dressing Care: Carlyn can be open to air as long as the incisions are not draining. If the incisions are draining or if the carlyn are getting caught on your clothes then please cover the carlyn with dry gauze. Change the dressings as necessary to keep the incision as dry as possible Showering: You may shower 5 days from the day of surgery as long as the incisions are not draining. Do not soak the incision. Let soapy water run over the carlyn and pat them dry. Things To Watch For: 1. Drainage from the incision site that occurs more than one week after your surgery. 2. Increased redness at the incision site. 3. Fever above 102 degrees Fahrenheit. 4. Unusual chest pain or shortness of breath. 5. Call [facility] at with any of the above problems Follow-Up Visit: Follow-up with Dr. Boland 2 weeks after your day of surgery. He will remove your carlyn and answer any questions. Please call the office to make an appointment for a time that works for you. If you have any questions call Pending Studies at Discharge: No Stand-Alone Forms: [employer], Smoking Cessation Medications and DC Order Prescriptions: New hydrocodone-acetaminophen 5-325 mg tablet 1 tab PO Q6 PRN (Reason: pain) Qty: 24 RF: 0 Continued Repatha SureClick 140 mg/mL Pen Injector 140 mg SUBCUT .Q2WK RF: 0 nifedipine 30 mg tablet extended release 30 mg PO DAILY RF: 0 telmisartan 80 mg tablet 80 mg PO DAILY RF: 0 raloxifene 60 mg tablet 60 mg PO DAILY RF: 0 Discharge Orders: Discharge Order (Routine); Ordered 06/11/21 Ordered By: Wicho Billings Admission Data Admit Date/Time: 06/08/21 01:37 Attending Provider: Erick Chambers Admit Provider: Dilip Lehman Primary Care Provider: PCP,NO Other Providers: Dilip Lehman Supervising Physician Co-Signing Physician Notes I also saw the patient and confirmed xiong portions of the history and physical examination. Agree with impression and plan as noted in resident documentation Upon examination, the patient is seated in the bedside chair undergoing physical therapy Exam 166/82, 88, 16, 37.2, 93% on room air Heart regular Respirations nonlabored Data Hemoglobin 10.9 A/P Right hip fracture Right humeral head fracture Right anterior shoulder dislocation Discharge home with services She will likely stay in her [place] home for another two weeks until her orthopedic follow-up, then return to her home in [place]. Hypertension Restart home medication Suspect some mild elevation secondary to hospitalization/pain Follow-up with PCP when she returns to home in [place] Else per resident documentation Resident Activity Tracking Resident Involvement: Resident Care Provided Care Provided: Adult Hospital Medicine
[2021-06-11] MEDS: ASPIRIN 81 MG ECTAB PO SCH (08:39)
--- NOTE | 2021-06-11 10:13 | Orthopedic Progress Note ---
Date of Service June 11, 2021 Assessment & Plan (1) Greater tuberosity of humerus fracture: (2) Closed hip fracture: Overall she is doing fairly well. She is on aspirin for DVT prophylaxis. She can be partial weightbearing with her right hip and her right shoulder. She has a platform walker in the room. She is orthopedically stable for discharge when medically ready. Full orthopedic discharge instructions were placed in the discharge summary. She will follow-up with Dr. Boland in 2 weeks. Samanta Scott was seen and examined at bedside this morning. Overall she doing fairly well. Overall she is doing better than she was yesterday. She is still having some pain in the shoulder. She is able to participate with physical therapy. She has no new complaints. Review of Systems All systems reviewed & are unremarkable except as noted in HPI & below. Physical Exam Physical examination of the right shoulder, the dressing is clean and dry. She is neurovascular intact. She is wearing her sling as instructed. On examination of the right hip, the dressing is clean and dry. She is active dorsiflexion plantarflexion of the right ankle. Results & Data Results & Data Laboratory Results . Diagnostic Findings . PG Care Time/CCT Total # of Minutes Spent Total Time Spent with Patient: Total time spent is greater than 50% in coordination of care (as documented) at patient's floor/unit and/or counseling patient: Coding Level of Care Code 61346 Post Operative Follow-Up Diagnoses Greater tuberosity of humerus fracture S42.253A Closed hip fracture S72.001A Encounter type: initial encounter Laterality: right (1) Closed hip fracture Encounter type: initial encounter Laterality: right Qualified Code(s): S72.001A - Fracture of unspecified part of neck of right femur, initial encounter for closed fracture
[2021-06-11] MEDS ORDERED: POLYETHYLENE (MIRALAX) 17 GM PACK PO SCH (12:00)
== END 2021-06-11 15:56 | disposition home health service (06) | DRG 481 ==
LOC: ED 19:42 → SUATTDRO 06-08 01:37 → EDINP 06-08 01:37 → 3E 06-08 09:58